=== PATIENT | female | born 1975 | race Two or more races ===

== ENCOUNTER 2022-06-30 08:15 | Emergency (ER) | payer OTHER, SELFPAY ==
--- NOTE | ~2022-06-30 | XR_ITS ---
EXAMINATION: XR CHEST CLINICAL INFORMATION: Cough and chest pain COMPARISON: Chest radiograph from 11/27/2015 TECHNIQUE: 2 views of the chest were obtained. FINDINGS: No focal consolidation. No pneumothorax. Trachea is midline. Cardiac mediastinal silhouette is not enlarged. No large pleural effusion. Osseous structures are intact. Soft tissues are unremarkable. XR/XR chest 2V IMPRESSION: No acute cardiopulmonary process.
--- NOTE | 2022-06-30 08:17 | ECG_ITS ---
Test Reason : cp Blood Pressure : / mmHG Vent. Rate : 090 BPM Atrial Rate : 090 BPM P-R Int : 148 ms QRS Dur : 072 ms QT Int : 364 ms P-R-T Axes : 033 021 025 degrees QTc Int : 445 ms Normal sinus rhythm Cannot rule out Anterior infarct , age undetermined - could be related to body habitus and lead placement Borderline ECG When compared with ECG of 27-NOV-2015 21:42, Vent. rate has increased BY 39 BPM Referred By: Generic ED Physician Electronically Signed By:SILVESTRE OLIVAREZ
[2022-06-30 08:27] VITALS: BP 131/87; PULSE 88; RESP 18; TEMP 36.2; O2SAT 96; BMI 45.3
--- OUTSIDE RECORDS SUMMARY | 2022-06-30 08:44 | XMS_ITS | Continuity of Care Document ---
Author Name Unknown Organization [facility] Address Unknown Care Team Providers Care Stretcher And Drier Name Role Phone Michelle Artis NP [place] Primary Care Physici an Encounter [facility] [place] ACCT R [id number] Date(s): 05/12/21 - 05/19/21 [facility] Attending Physician: Silvana Thomas RD Referring Physician: Not on Staff, Referring MD Allergies, Adverse Reactions, Alerts No Known Allergies Immunizations Given and Recorded Vaccine Date Status Refusal Reason influenza virus vaccine, inactivated 01/17/19 Give n influenza virus vaccine, inactivated 1 01/25/10 Gi chacorta pneumococcal 23-valent vaccine 11/19/18 Given tetanus-diphtheria toxoids (Td) 2 04/20/10 Given Influenza Vaccine (oldterm) 3 12/31/08 Given 1Admin Note: VIS 11/10/2009 2Admin Note: vis 09/10/93 3Admin Note: VIS 11/11/08 Medications Carafate 1 gm oral tablet 1 Gm, 1, tablet, By Mouth, 3 times a day before meals and bedtime, PRN, # 120 tablet, Refills 2, Tot. Refills 2, Maintenance, Dyspepsia, 11/06/19 16:56:00 EDT, Route to Pharmacy Electronically, [facility] #[id number], 167.6, cm, 03/20/19 8:28:00... Start Date: 11/06/19 Status: Ordered cetirizine 10 mg oral tablet 1 tablet = 10 mg, By Mouth, Daily, # 30 tablet, 1 Refills, Maintenance, 05/23/18 14:31:47 EST, Tablet, Slovak instructions Start Date: 05/23/18 Status: Ordered famotidine 10 mg oral tablet 1 tablet = 10 mg, By Mouth, 2 times a day, # 28 tablet, 0 Refills, Maintenance, 11/01/19 17:06:00 EDT, Tablet, [facility] #[id number], 167.6, cm, 03/20/19 8:28:00 EST, Height Start Date: 11/01/19 Stop Date: 11/15/19 Status: Ordered hydrocortisone 2.5% topical cream 1 application, Topically, 2 times a day, Apply thin film to affected area on face until symptoms resolve. Do use for more than 2 weeks., # 30 Gm, 0 Refills, Maintenance, 05/23/18 14:33:45 EST, Cream,Slovak instructions, 1 application Topically 2 carina... Start Date: 05/23/18 Status: Ordered naproxen 500 mg oral tablet 1 tablet = 500 mg, By Mouth, 2 times a day, PRN Pain , Moderate, take regularly for 1-2 weeks then as needed, do not take with ibuprofen in greenlandic, # 30 tablet, 0 Refills, Maintenance, 02/13/19 14:04:28 EST, Tablet Start Date: 02/13/19 Status: Ordered ondansetron 4 mg oral tablet 1 tablet = 4 mg, By Mouth, Every 8 hours, PRN as needed for nausea/vomiting, # 12 tablet, 0 Refills, Maintenance, 11/01/19 14:06:00 EDT, Tablet, [facility]/pharmacy #[id number], 167.6, cm, 03/20/19 8:28:00 EST, Height Start Date: 11/01/19 Status: Ordered Problem List Condition Effective Dates Status Health Status Inform ant Arachnoid cyst(Confirmed) Active Morbid obesity with BMI of 4 5.0-49.9, adult(Confirmed) Active Chronic headache disorder(Confirmed) Active COVID-19 virus infection(Confirmed) 1 Active Depression(Confirmed) Active Eczema hand(Confirmed) Active ENDOMETRIOSIS(Confirmed) Active Goal-to stop having headaches(Confirmed) Active Heartburn(Confirmed) Active History of diverticulitis(Confirmed) Active Hyperlipidemia(Confirmed) Active HTN (hypertension)(Confirmed) Active Intermittent asthma(Confirmed) Active Calcification of right breas t on mammography(Confirmed) 2, 3 Active Metrorrhagia(Confirmed) 07/18/07 Active HUONG - Obstructive sleep apnea(Confirmed) Active Severe obesity(Confirmed) Active Snoring(Confirmed) Active Vitamin D Deficiency(Confirmed) Active 1Reported by pt, June 2020, no hospitalization. 2follow-up Left breast US in 6 mos August 2020 3repeat mammo in 6 mos- 07/2019 Vital Signs Most recent to oldest [Reference Range]: 1 Height 165 cm (05/12/21 10:14 AM) Weight 130.8 kg (05/12/21 10:14 AM) Body Mass Index [18.5-24.99] 48.04 *>HHI* (05/12/21 10:14 AM) Social History Social History Type Response Smoking Status Never smoker entered on: 12/31/15 Sex
--- OUTSIDE RECORDS SUMMARY | 2022-06-30 08:44 | XMS_ITS | Continuity of Care Document ---
Author Name Unknown Organization [facility] Address [address] [place] [address]- Care Team Providers Care Chief Of Production Name Role Phone Chandra ROSE, Michelle Cruz Primary Care Physici an [place] [facility] [place] - 12/04/[address] [address]- [facility] Allergies, Adverse Reactions, Alerts Substance Reaction Severity Status NKA Active Immunizations Given and Recorded Vaccine Date Status [...] 11/06/19 16:56:00 EDT, Route to Pharmacy Electronically, [facility] #[id number], 827.6, cm, 03/20/19 8:28:00... Start Date: 11/06/19 Status: Ordered cetirizine 10 mg oral tablet 1 tablet = 10 mg, By Mouth, Daily, # 30 tablet, 1 Refills, Maintenance, 05/23/18 14:31:47 EST, Tablet, Estonian instructions Start Date: 05/23/18 Status: Ordered famotidine 10 mg oral tablet 1 tablet = 10 mg, By Mouth, 2 times a day, # 28 tablet, 0 Refills, Maintenance, 11/01/19 17:06:00 EDT, Tablet, [facility] #[id number], 167.6, cm, 03/20/19 8:28:00 EST, Height Start Date: 11/01/19 Stop Date: 11/15/19 Status: Ordered hydrocortisone 2.5% topical cream 1 application, Topically, 2 times a day, Apply thin film to affected area on face until symptoms resolve. Do use for more than 2 weeks., # 30 Gm, 0 Refills, Maintenance, 05/23/18 14:33:45 EST, Cream,Estonian instructions, 1 application Topically 2 carina... Start Date: 05/23/18 Status: Ordered naproxen 500 mg oral tablet 1 tablet = 500 mg, By Mouth, 2 times a day, PRN Pain , Moderate, take regularly for 1-2 weeks then as needed, do not take with ibuprofen in czech, # 30 tablet, 0 Refills, Maintenance, 02/13/19 14:04:28 EST, Tablet Start Date: 02/13/19 Status: Ordered ondansetron 4 mg oral tablet 1 tablet = 4 mg, By Mouth, Every 8 hours, PRN as needed for nausea/vomiting, # 12 tablet, 0 Refills, Maintenance, 11/01/19 14:06:00 EDT, Tablet, [facility]/pharmacy #[id number], 167.6, cm, 03/20/19 8:28:00 EST, Height Start Date: 11/01/19 Status: Ordered Problem List Condition Effective Dates Status Health Status Inform ant Arachnoid cyst(Confirmed) Active Chronic headache disorder(Confirmed) Active Depression(Confirmed) Active Eczema hand(Confirmed) Active ENDOMETRIOSIS(Confirmed) Active Goal-to stop having headaches(Confirmed) Active Hyperlipidemia(Confirmed) Active Intermittent asthma(Confirmed) Active Calcification of right breas t on mammography(Confirmed) 1 Active Metrorrhagia(Confirmed) 07/18/07 Active Morbid obesity(Confirmed) Active HUONG - Obstructive sleep apnea(Confirmed) Active Vitamin D Deficiency(Confirmed) Active 1repeat mammo in 6 mos- 07/2019 Social History Social History Type Response Smoking Status Never smoker entered on: 12/31/15 Sex
--- OUTSIDE RECORDS SUMMARY | 2022-06-30 08:44 | XMS_ITS | Continuity of Care Document ---
Author Name Unknown Organization [facility] Address [address] [place] [address]- Care Team Providers Care Loan Funder Name Role Phone Chandra ROSE, Michelle Cruz Primary Care Physici an [place] [facility] [place] 12/05/[address] [address]- [facility] Allergies, Adverse Reactions, Alerts Substance Reaction Severity [...] 11/06/19 16:56:00 EDT, Route to Pharmacy Electronically, [facility] #[id number], 784.6, cm, 03/20/19 8:28:00... Start Date: 11/06/19 Status: Ordered cetirizine 10 mg oral tablet 1 tablet = 10 mg, By Mouth, Daily, # 30 tablet, 1 Refills, Maintenance, 05/23/18 14:31:47 EST, Tablet, Guyanese instructions Start Date: 05/23/18 Status: Ordered famotidine 10 mg oral tablet 1 tablet = 10 mg, By Mouth, 2 times a day, # 28 tablet, 0 Refills, Maintenance, 11/01/19 17:06:00 EDT, Tablet, [facility] #[id number], 167.6, cm, 03/20/19 8:28:00 EST, Height Start Date: 11/01/19 Stop Date: 11/15/19 Status: Ordered hydrocortisone 2.5% topical cream 1 application, Topically, 2 times a day, Apply thin film to affected area on face until symptoms resolve. Do use for more than 2 weeks., # 30 Gm, 0 Refills, Maintenance, 05/23/18 14:33:45 EST, Cream,Guyanese instructions, 1 application Topically 2 carina... Start Date: 05/23/18 Status: Ordered naproxen 500 mg oral tablet 1 tablet = 500 mg, By Mouth, 2 times a day, PRN Pain , Moderate, take regularly for 1-2 weeks then as needed, do not take with ibuprofen in gabonese, # 30 tablet, 0 Refills, Maintenance, 02/13/19 14:04:28 EST, Tablet Start Date: 02/13/19 Status: Ordered ondansetron 4 mg oral tablet 1 tablet = 4 mg, By Mouth, Every 8 hours, PRN as needed for nausea/vomiting, # 12 tablet, 0 Refills, Maintenance, 11/01/19 14:06:00 EDT, Tablet, [facility]/pharmacy #[id number], 167.6, cm, 03/20/19 8:28:00 EST, Height [...]
--- OUTSIDE RECORDS SUMMARY | 2022-06-30 08:44 | XMS_ITS | Continuity of Care Document ---
Author Name Unknown Organization [facility] Address [address] [place] [address]- Care Team Providers Care Roustabout Pusher Name Role Phone Michelle Artis NP Primary Care Physici an Encounter [facility] Date(s): 11/09/20 - 12/09/[address] [address]- Allergies, Adverse Reactions, Alerts Substance Reaction Severity [...] 11/06/19 16:56:00 EDT, Route to Pharmacy Electronically, [facility] #[id number], 706.6, cm, 03/20/19 8:28:00... Start Date: 11/06/19 Status: Ordered cetirizine 10 mg oral tablet 1 tablet = 10 mg, By Mouth, Daily, # 30 tablet, 1 Refills, Maintenance, 05/23/18 14:31:47 EST, Tablet, Malian instructions Start Date: 05/23/18 Status: Ordered famotidine 10 mg oral tablet 1 tablet = 10 mg, By Mouth, 2 times a day, # 28 tablet, 0 Refills, Maintenance, 11/01/19 17:06:00 EDT, Tablet, [facility] #[id number], 167.6, cm, 03/20/19 8:28:00 EST, Height Start Date: 11/01/19 Stop Date: 11/15/19 Status: Ordered hydrocortisone 2.5% topical cream 1 application, Topically, 2 times a day, Apply thin film to affected area on face until symptoms resolve. Do use for more than 2 weeks., # 30 Gm, 0 Refills, Maintenance, 05/23/18 14:33:45 EST, Cream,Malian instructions, 1 application Topically 2 carina... Start Date: 05/23/18 Status: Ordered naproxen 500 mg oral tablet 1 tablet = 500 mg, By Mouth, 2 times a day, PRN Pain , Moderate, take regularly for 1-2 weeks then as needed, do not take with ibuprofen in palestinian, # 30 tablet, 0 Refills, Maintenance, 02/13/19 14:04:28 EST, Tablet Start Date: 02/13/19 Status: Ordered ondansetron 4 mg oral tablet 1 tablet = 4 mg, By Mouth, Every 8 hours, PRN as needed for nausea/vomiting, # 12 tablet, 0 Refills, Maintenance, 11/01/19 14:06:00 EDT, Tablet, [facility]/pharmacy #[id number], 167.6, cm, 03/20/19 8:28:00 EST, [...] sleep apnea(Confirmed) Active Vitamin D Deficiency(Confirmed) Active 1Reported by pt, June 2020, no hospitalization. 2follow-up Left breast US in 6 mos August 2020 3repeat mammo in 6 mos- 07/2019 Social History Social History Type Response Smoking Status Never smoker entered on: 12/31/15 Sex
--- OUTSIDE RECORDS SUMMARY | 2022-06-30 08:44 | XMS_ITS | Continuity of Care Document ---
Author Name Unknown Organization [facility] Address Unknown Care Team Providers Care Sap Ppm Consultant Name Role Phone Chandra ROSE, Michelle Barney [place] Primary Care Physici an [place] [facility] [place] 02/24/21 [facility] Attending Physician: Silvana Thomas RD Allergies, Adverse Reactions, Alerts Substance Reaction Severity [...] 11/06/19 16:56:00 EDT, Route to Pharmacy Electronically, [facility] #[id number], 737.6, cm, 03/20/19 8:28:00... Start Date: 11/06/19 Status: Ordered cetirizine 10 mg oral tablet 1 tablet = 10 mg, By Mouth, Daily, # 30 tablet, 1 Refills, Maintenance, 05/23/18 14:31:47 EST, Tablet, Andorran instructions Start Date: 05/23/18 Status: Ordered famotidine 10 mg oral tablet 1 tablet = 10 mg, By Mouth, 2 times a day, # 28 tablet, 0 Refills, Maintenance, 11/01/19 17:06:00 EDT, Tablet, [facility] #[id number], 167.6, cm, 03/20/19 8:28:00 EST, Height Start Date: 11/01/19 Stop Date: 11/15/19 Status: Ordered hydrocortisone 2.5% topical cream 1 application, Topically, 2 times a day, Apply thin film to affected area on face until symptoms resolve. Do use for more than 2 weeks., # 30 Gm, 0 Refills, Maintenance, 05/23/18 14:33:45 EST, Cream,Andorran instructions, 1 application Topically 2 carina... Start Date: 05/23/18 Status: Ordered naproxen 500 mg oral tablet 1 tablet = 500 mg, By Mouth, 2 times a day, PRN Pain , Moderate, take regularly for 1-2 weeks then as needed, do not take with ibuprofen in beninese, # 30 tablet, 0 Refills, Maintenance, 02/13/19 14:04:28 EST, Tablet Start Date: 02/13/19 Status: Ordered ondansetron 4 mg oral tablet 1 tablet = 4 mg, By Mouth, Every 8 hours, PRN as needed for nausea/vomiting, # 12 tablet, 0 Refills, Maintenance, 11/01/19 14:06:00 EDT, Tablet, [facility]acy #[id number], 167.6, cm, 03/20/19 8:28:00 EST, Height [...] Obstructive sleep apnea(Confirmed) Active Severe obesity(Confirmed) Active Vitamin D Deficiency(Confirmed) Active 1Reported by pt, June 2020, no hospitalization. 2follow-up Left breast US in 6 mos August 2020 3repeat mammo in 6 mos- 07/2019 Vital Signs Most recent to oldest [Reference Range]: 1 Height 165 cm (02/17/21 3:10 PM) Weight 131.4 kg (02/17/21 3:10 PM) Body Mass Index [18.5-24.99] 48.26 *>HHI* (02/17/21 3:10 PM) Social History Social History Type Response Smoking Status Never smoker entered on: 12/31/15 Sex
--- OUTSIDE RECORDS SUMMARY | 2022-06-30 08:44 | XMS_ITS | Continuity of Care Document ---
Author Name Unknown Organization [facility] Address [address] [place] [address] [address] [place] [address]- Care Team Providers Care Field Spec Name Role Phone Chandra ROSE, Michelle Cruz Primary Care Physici an Encounter [facility] Date(s): 11/02/20 - 11/09/[address] [place] [address]- Encounter Diagnosis Morbid obesity with BMI of 45.0-49.9, adult(Discharge Diagnosis) - 11/02/20 Attending Physician: Tanner Croft Referring Physician: Michelle Artis NP Allergies, Adverse Reactions, Alerts Substance Reaction Severity [...] 11/06/19 16:56:00 EDT, Route to Pharmacy Electronically, [facility] #[id number], 167.6, cm, 03/20/19 8:28:00... Start Date: 11/06/19 Status: Ordered cetirizine 10 mg oral tablet 1 tablet = 10 mg, By Mouth, Daily, # 30 tablet, 1 Refills, Maintenance, 05/23/18 14:31:47 EST, Tablet, Samoan instructions Start Date: 05/23/18 Status: Ordered famotidine 10 mg oral tablet 1 tablet = 10 mg, By Mouth, 2 times a day, # 28 tablet, 0 Refills, Maintenance, 11/01/19 17:06:00 EDT, Tablet, [facility] #[id number], 167.6, cm, 03/20/19 8:28:00 EST, Height Start Date: 11/01/19 Stop Date: 11/15/19 Status: Ordered hydrocortisone 2.5% topical cream 1 application, Topically, 2 times a day, Apply thin film to affected area on face until symptoms resolve. Do use for more than 2 weeks., # 30 Gm, 0 Refills, Maintenance, 05/23/18 14:33:45 EST, Cream,Samoan instructions, 1 application Topically 2 carina... Start Date: 05/23/18 Status: Ordered naproxen 500 mg oral tablet 1 tablet = 500 mg, By Mouth, 2 times a day, PRN Pain , Moderate, take regularly for 1-2 weeks then as needed, do not take with ibuprofen in polish, # 30 tablet, 0 Refills, Maintenance, 02/13/19 14:04:28 EST, Tablet Start Date: 02/13/19 Status: Ordered ondansetron 4 mg oral tablet 1 tablet = 4 mg, By Mouth, Every 8 hours, PRN as needed for nausea/vomiting, # 12 tablet, 0 Refills, Maintenance, 11/01/19 14:06:00 EDT, Tablet, [facility]/pharmacy #[id number], 167.6, cm, 03/20/19 8:28:00 EST, [...] 2020 3repeat mammo in 6 mos- 07/2019 Diagnosis Diagnosis Type Effective Dates Health Status Cl inical Service Informant Morbid obesity with BMI of 45.0-49.9, adult Discharge Diagnosis 11/02/20 Procedures Procedure Date Related Diagnosis Body Site Status section 2002 Complete d Vital Signs Most recent to oldest [Reference Range]: 1 Height 167.6 cm (11/02/20 3:55 PM) Weight 132.8 kg (11/02/20 3:55 PM) Pulse Rate [55-90 bpm] 75 bpm (11/02/20 3:55 PM) Body Mass Index [18.5-24.99] 47.28 *>HHI* (11/02/20 3:55 PM) Blood Pressure [90-138/55-84 mm Hg] 128/ 84mm Hg (11/02/20 3:55 PM) Temperature [96.8-100.4 DegF] 97.4 DegF (11/02/20 3:55 PM) Blood pressure sites Arm, left (11/02/20 3:55 PM) Temperature Route Temporal (11/02/20 3:55 PM) Weight Obtained Via Standing scale (11/02/20 3:55 PM) Social History Social History Type Response Smoking Status Never smoker entered on: 12/31/15 Sex
--- OUTSIDE RECORDS SUMMARY | 2022-06-30 08:44 | XMS_ITS | Continuity of Care Document ---
Author Name Unknown Organization [facility] Address Unknown Care Team Providers Care Head Of Quality Name Role Phone Chandra ROSE, Michelle Barney Tagcelena Primary Care Physici an Encounter [facility] [place] Date(s): 06/25/21 - 07/25/21 [facility] Attending Physician: AdmtrChirag Admitting Physician: Admtr, Chirag Referring Physician: Admtr, Ar8 Allergies, Adverse Reactions, Alerts No Known Allergies [...] 11/06/19 16:56:00 EDT, Route to Pharmacy Electronically, [facility] #[id number], 520.6, cm, 03/20/19 8:28:00... Start Date: 11/06/19 Status: Ordered cetirizine 10 mg oral tablet 1 tablet = 10 mg, By Mouth, Daily, # 30 tablet, 1 Refills, Maintenance, 05/23/18 14:31:47 EST, Tablet, Arabic instructions Start Date: 05/23/18 Status: Ordered famotidine 10 mg oral tablet 1 tablet = 10 mg, By Mouth, 2 times a day, # 28 tablet, 0 Refills, Maintenance, 11/01/19 17:06:00 EDT, Tablet, [facility] #[id number], 167.6, cm, 03/20/19 8:28:00 EST, Height Start Date: 11/01/19 Stop Date: 11/15/19 Status: Ordered hydrocortisone 2.5% topical cream 1 application, Topically, 2 times a day, Apply thin film to affected area on face until symptoms resolve. Do use for more than 2 weeks., # 30 Gm, 0 Refills, Maintenance, 05/23/18 14:33:45 EST, Cream,Arabic instructions, 1 application Topically 2 carina... Start Date: 05/23/18 Status: Ordered naproxen 500 mg oral tablet 1 tablet = 500 mg, By Mouth, 2 times a day, PRN Pain , Moderate, take regularly for 1-2 weeks then as needed, do not take with ibuprofen in yoruba, # 30 tablet, 0 Refills, Maintenance, 02/13/19 14:04:28 EST, Tablet Start Date: 02/13/19 Status: Ordered ondansetron 4 mg oral tablet 1 tablet = 4 mg, By Mouth, Every 8 hours, PRN as needed for nausea/vomiting, # 12 tablet, 0 Refills, Maintenance, 11/01/19 14:06:00 EDT, Tablet, [facility]acy #[id number], 167.6, cm, 03/20/19 8:28:00 [...]
--- OUTSIDE RECORDS SUMMARY | 2022-06-30 08:44 | XMS_ITS | Continuity of Care Document ---
Author Name Unknown Organization [facility] Address [address] [place] [address]- Care Team Providers Care Social Group Worker Name Role Phone Chandra ROSE, Michelle Cruz Primary Care Physici an Encounter [facility] Date(s): 02/18/20 - 03/19/[address] [address]- Allergies, Adverse Reactions, Alerts Substance Reaction Severity [...] 11/06/19 16:56:00 EDT, Route to Pharmacy Electronically, [facility] #[id number], 507.6, cm, 03/20/19 8:28:00... Start Date: 11/06/19 Status: Ordered cetirizine 10 mg oral tablet 1 tablet = 10 mg, By Mouth, Daily, # 30 tablet, 1 Refills, Maintenance, 05/23/18 14:31:47 EST, Tablet, Malaysian instructions Start Date: 05/23/18 Status: Ordered famotidine 10 mg oral tablet 1 tablet = 10 mg, By Mouth, 2 times a day, # 28 tablet, 0 Refills, Maintenance, 11/01/19 17:06:00 EDT, Tablet, [facility] #[id number], 167.6, cm, 03/20/19 8:28:00 EST, Height Start Date: 11/01/19 Stop Date: 11/15/19 Status: Ordered hydrocortisone 2.5% topical cream 1 application, Topically, 2 times a day, Apply thin film to affected area on face until symptoms resolve. Do use for more than 2 weeks., # 30 Gm, 0 Refills, Maintenance, 05/23/18 14:33:45 EST, Cream,Malaysian instructions, 1 application Topically 2 carina... Start Date: 05/23/18 Status: Ordered naproxen 500 mg oral tablet 1 tablet = 500 mg, By Mouth, 2 times a day, PRN Pain , Moderate, take regularly for 1-2 weeks then as needed, do not take with ibuprofen in north korean, # 30 tablet, 0 Refills, Maintenance, 02/13/19 14:04:28 EST, Tablet Start Date: 02/13/19 Status: Ordered ondansetron 4 mg oral tablet 1 tablet = 4 mg, By Mouth, Every 8 hours, PRN as needed for nausea/vomiting, # 12 tablet, 0 Refills, Maintenance, 11/01/19 14:06:00 EDT, Tablet, [facility]acy #[id number], 167.6, cm, 03/20/19 8:28:00 EST, Height Start Date: 11/01/19 Status: Ordered Problem List Condition Effective Dates Status Health Status Inform ant Arachnoid cyst(Confirmed) Active Chronic headache disorder(Confirmed) Active Depression(Confirmed) Active Eczema hand(Confirmed) Active ENDOMETRIOSIS(Confirmed) Active Goal-to stop having headaches(Confirmed) Active Hyperlipidemia(Confirmed) Active Intermittent asthma(Confirmed) Active Calcification of right breas t on mammography(Confirmed) 1, 2 Active Metrorrhagia(Confirmed) 07/18/07 Active Morbid obesity(Confirmed) Active HUONG - Obstructive sleep apnea(Confirmed) Active Vitamin D Deficiency(Confirmed) Active 1follow-up Left breast US in 6 mos August 2020 2repeat mammo in 6 mos- 07/2019 Social History Social History Type Response Smoking Status Never smoker entered on: 12/31/15 Sex
--- OUTSIDE RECORDS SUMMARY | 2022-06-30 08:44 | XMS_ITS | Continuity of Care Document ---
Author Name Unknown Organization [facility] Address [address] [place] [address]- Care Team Providers Care Rubbing Bed Operator Name Role Phone Michelle Artis NP Primary Care Physici an En[place] [facility] [place] Date(s): 07/01/19 - 07/11/19 [facility] [address] [place] [address]- Attending Physician: Chirag Moseley Admitting Physician: AdmChirag saldana Referring Physician: AdmtrChirag Allergies, Adverse Reactions, Alerts Substance Reaction Severity [...] vis 09/10/93 3Admin Note: VIS 11/11/08 Medications cetirizine 10 mg oral tablet 1 tablet = 10 mg, By Mouth, Daily, # 30 tablet, 1 Refills, Maintenance, 05/23/18 14:31:47 EST, Tablet, Amharic instructions Start Date: 05/23/18 Status: Ordered hydrocortisone 2.5% topical cream 1 application, Topically, 2 times a day, Apply thin film to affected area on face until symptoms resolve. Do use for more than 2 weeks., # 30 Gm, 0 Refills, Maintenance, 05/23/18 14:33:45 EST, Cream,Amharic instructions, 1 application Topically 2 carina... Start Date: 05/23/18 Status: Ordered naproxen 500 mg oral tablet 1 tablet = 500 mg, By Mouth, 2 times a day, PRN Pain , Moderate, take regularly for 1-2 weeks then as needed, do not take with ibuprofen in tamazight, # 30 tablet, 0 Refills, Maintenance, 02/13/19 14:04:28 EST, Tablet Start Date: 02/13/19 Status: Ordered Problem List Condition Effective Dates [...]
--- OUTSIDE RECORDS SUMMARY | 2022-06-30 08:44 | XMS_ITS | Continuity of Care Document ---
Author Name Unknown Organization [facility] Address Unknown Care Team Providers Care Awnings Mechanic Name Role Phone Chandra ROSE, Michelle Barney Tagcelena Primary Care Physici an [facility]counter [facility] Date(s): 03/30/21 - 04/29/21 [facility] Attending Physician: Chirag Moseley Admitting Physician: Chirag Moseley Referring Physician: AdmtrChirag Allergies, Adverse Reactions, Alerts No Known Allergies [...] 11/06/19 16:56:00 EDT, Route to Pharmacy Electronically, [facility] #[id number], 511.6, cm, 03/20/19 8:28:00... Start Date: 11/06/19 Status: Ordered cetirizine 10 mg oral tablet 1 tablet = 10 mg, By Mouth, Daily, # 30 tablet, 1 Refills, Maintenance, 05/23/18 14:31:47 EST, Tablet, Faroese instructions Start Date: 05/23/18 Status: Ordered famotidine 10 mg oral tablet 1 tablet = 10 mg, By Mouth, 2 times a day, # 28 tablet, 0 Refills, Maintenance, 11/01/19 17:06:00 EDT, Tablet, [facility] #[id number], 167.6, cm, 03/20/19 8:28:00 EST, Height Start Date: 11/01/19 Stop Date: 11/15/19 Status: Ordered hydrocortisone 2.5% topical cream 1 application, Topically, 2 times a day, Apply thin film to affected area on face until symptoms resolve. Do use for more than 2 weeks., # 30 Gm, 0 Refills, Maintenance, 05/23/18 14:33:45 EST, Cream,Faroese instructions, 1 application Topically 2 carina... Start Date: 05/23/18 Status: Ordered naproxen 500 mg oral tablet 1 tablet = 500 mg, By Mouth, 2 times a day, PRN Pain , Moderate, take regularly for 1-2 weeks then as needed, do not take with ibuprofen in bangladeshi, # 30 tablet, 0 Refills, Maintenance, 02/13/19 14:04:28 EST, Tablet Start Date: 02/13/19 Status: Ordered ondansetron 4 mg oral tablet 1 tablet = 4 mg, By Mouth, Every 8 hours, PRN as needed for nausea/vomiting, # 12 tablet, 0 Refills, Maintenance, 11/01/19 14:06:00 EDT, Tablet, [facility]/pharmacy #[id number], 167.6, cm, 03/20/19 8:28:00 [...]
--- OUTSIDE RECORDS SUMMARY | 2022-06-30 08:44 | XMS_ITS | Continuity of Care Document ---
Author Name Unknown Organization [facility] Address [address] [place] [address]- Care Team Providers Care Social Insurance Specialist Name Role Phone Michelle Artis NP Primary Care Physici an Encounter [facility] [place] Date(s): 07/14/21 - 08/13/[address] [address]- Allergies, Adverse Reactions, Alerts No Known Allergies [...] 11/06/19 16:56:00 EDT, Route to Pharmacy Electronically, [facility] #[id number], 671.6, cm, 03/20/19 8:28:00... Start Date: 11/06/19 Status: Ordered cetirizine 10 mg oral tablet 1 tablet = 10 mg, By Mouth, Daily, # 30 tablet, 1 Refills, Maintenance, 05/23/18 14:31:47 EST, Tablet, Hong Konger instructions Start Date: 05/23/18 Status: Ordered famotidine 10 mg oral tablet 1 tablet = 10 mg, By Mouth, 2 times a day, # 28 tablet, 0 Refills, Maintenance, 11/01/19 17:06:00 EDT, Tablet, [facility] #[id number], 167.6, cm, 03/20/19 8:28:00 EST, Height Start Date: 11/01/19 Stop Date: 11/15/19 Status: Ordered hydrocortisone 2.5% topical cream 1 application, Topically, 2 times a day, Apply thin film to affected area on face until symptoms resolve. Do use for more than 2 weeks., # 30 Gm, 0 Refills, Maintenance, 05/23/18 14:33:45 EST, Cream,Hong Konger instructions, 1 application Topically 2 carina... Start Date: 05/23/18 Status: Ordered naproxen 500 mg oral tablet 1 tablet = 500 mg, By Mouth, 2 times a day, PRN Pain , Moderate, take regularly for 1-2 weeks then as needed, do not take with ibuprofen in citizen of [place], # 30 tablet, 0 Refills, Maintenance, 02/13/19 14:04:28 EST, Tablet Start Date: 02/13/19 Status: Ordered ondansetron 4 mg oral tablet 1 tablet = 4 mg, By Mouth, Every 8 hours, PRN as needed for nausea/vomiting, # 12 tablet, 0 Refills, Maintenance, 11/01/19 14:06:00 EDT, Tablet, [facility]/pharmacy #[id number], 167.6, cm, 03/20/19 8:28:00 EST, [...]
--- OUTSIDE RECORDS SUMMARY | 2022-06-30 08:44 | XMS_ITS | Continuity of Care Document ---
Author Name Unknown Organization [facility] Address [address] [place] [address]- Care Team Providers Care Lay Out Maker Name Role Phone Michelle Artis NP Primary Care Physici an [facility]counter [facility] Date(s): 12/14/20 - 01/13/[address] [address]- Allergies, Adverse Reactions, Alerts Substance Reaction Severity [...] 11/06/19 16:56:00 EDT, Route to Pharmacy Electronically, [facility] #[id number], 897.6, cm, 03/20/19 8:28:00... Start Date: 11/06/19 Status: Ordered cetirizine 10 mg oral tablet 1 tablet = 10 mg, By Mouth, Daily, # 30 tablet, 1 Refills, Maintenance, 05/23/18 14:31:47 EST, Tablet, Cambodian instructions Start Date: 05/23/18 Status: Ordered famotidine 10 mg oral tablet 1 tablet = 10 mg, By Mouth, 2 times a day, # 28 tablet, 0 Refills, Maintenance, 11/01/19 17:06:00 EDT, Tablet, [facility] #[id number], 167.6, cm, 03/20/19 8:28:00 EST, Height Start Date: 11/01/19 Stop Date: 11/15/19 Status: Ordered hydrocortisone 2.5% topical cream 1 application, Topically, 2 times a day, Apply thin film to affected area on face until symptoms resolve. Do use for more than 2 weeks., # 30 Gm, 0 Refills, Maintenance, 05/23/18 14:33:45 EST, Cream,Cambodian instructions, 1 application Topically 2 carina... Start Date: 05/23/18 Status: Ordered naproxen 500 mg oral tablet 1 tablet = 500 mg, By Mouth, 2 times a day, PRN Pain , Moderate, take regularly for 1-2 weeks then as needed, do not take with ibuprofen in georgian, # 30 tablet, 0 Refills, Maintenance, 02/13/19 14:04:28 EST, Tablet Start Date: 02/13/19 Status: Ordered ondansetron 4 mg oral tablet 1 tablet = 4 mg, By Mouth, Every 8 hours, PRN as needed for nausea/vomiting, # 12 tablet, 0 Refills, Maintenance, 11/01/19 14:06:00 EDT, Tablet, [facility]/pharmacy #[id number], 167.6, cm, 03/20/19 8:28:00 EST, [...]
--- OUTSIDE RECORDS SUMMARY | 2022-06-30 08:44 | XMS_ITS | Continuity of Care Document ---
Author Name Unknown Organization [facility] Address [address] [place] [address]- Care Team Providers Care Hospice Music Therapist Name Role Phone Michelle Artis NP Primary Care Physici an [place] [facility] [place] [facility] [place] - 05/23/[address] [facility] [address] [address]- Attending Physician: Chirag Moseley Admitting Physician: Chirag [...] 11/06/19 16:56:00 EDT, Route to Pharmacy Electronically, [facility] #[id number], 167.6, cm, 03/20/19 8:28:00... Start Date: 11/06/19 Status: Ordered cetirizine 10 mg oral tablet 1 tablet = 10 mg, By Mouth, Daily, # 30 tablet, 1 Refills, Maintenance, 05/23/18 14:31:47 EST, Tablet, Tanzanian instructions Start Date: 05/23/18 Status: Ordered famotidine 10 mg oral tablet 1 tablet = 10 mg, By Mouth, 2 times a day, # 28 tablet, 0 Refills, Maintenance, 11/01/19 17:06:00 EDT, Tablet, [facility] #[id number], 167.6, cm, 03/20/19 8:28:00 EST, Height Start Date: 11/01/19 Stop Date: 11/15/19 Status: Ordered hydrocortisone 2.5% topical cream 1 application, Topically, 2 times a day, Apply thin film to affected area on face until symptoms resolve. Do use for more than 2 weeks., # 30 Gm, 0 Refills, Maintenance, 05/23/18 14:33:45 EST, Cream,Tanzanian instructions, 1 application Topically 2 carina... Start Date: 05/23/18 Status: Ordered naproxen 500 mg oral tablet 1 tablet = 500 mg, By Mouth, 2 times a day, PRN Pain , Moderate, take regularly for 1-2 weeks then as needed, do not take with ibuprofen in turkmen, # 30 tablet, 0 Refills, Maintenance, 02/13/19 14:04:28 EST, Tablet Start Date: 02/13/19 Status: Ordered ondansetron 4 mg oral tablet 1 tablet = 4 mg, By Mouth, Every 8 hours, PRN as needed for nausea/vomiting, # 12 tablet, 0 Refills, Maintenance, 11/01/19 14:06:00 EDT, Tablet, [facility]/pharmacy #[id number], 167.6, cm, 03/20/19 8:28:00 EST, [...]
--- OUTSIDE RECORDS SUMMARY | 2022-06-30 08:44 | XMS_ITS | Continuity of Care Document ---
Author Name Unknown Organization [facility] Address [address] [place] [address]- Care Team Providers Care Hull Sorter Name Role Phone Chandra ROSE, Michelle Cruz Primary Care Physici an Encounter [facility] [place] Date(s): 04/02/19 - 07/31/19 [facility] [address] [place] [address]- Attending Physician: Not on Staff, Attending MD Referring Physician: Michelle Artis NP Allergies, Adverse [...] 1 Refills, Maintenance, 05/23/18 14:31:47 EST, Tablet, Persian instructions Start Date: 05/23/18 Status: Ordered hydrocortisone 2.5% topical cream 1 application, Topically, 2 times a day, Apply thin film to affected area on face until symptoms resolve. Do use for more than 2 weeks., # 30 Gm, 0 Refills, Maintenance, 05/23/18 14:33:45 EST, Cream,Persian instructions, 1 application Topically 2 carina... Start Date: 05/23/18 Status: Ordered naproxen 500 mg oral tablet 1 tablet = 500 mg, By Mouth, 2 times a day, PRN Pain , Moderate, take regularly for 1-2 weeks then as needed, do not take with ibuprofen in greek, # 30 tablet, 0 Refills, Maintenance, 02/13/19 [...]
--- OUTSIDE RECORDS SUMMARY | 2022-06-30 08:44 | XMS_ITS | Continuity of Care Document ---
Author Name Unknown Organization [facility] Address [address] [place] [address]- Care Team Providers Care Facing End Trimmer Name Role Phone Michelle Artis NP Primary Care Physici an [facility] Date(s): 09/10/20 - 10/10/[address] [address] Allergies, Adverse Reactions, Alerts Substance Reaction Severity [...] 11/06/19 16:56:00 EDT, Route to Pharmacy Electronically, [facility] #[id number], 569.6, cm, 03/20/19 8:28:00... Start Date: 11/06/19 Status: Ordered cetirizine 10 mg oral tablet 1 tablet = 10 mg, By Mouth, Daily, # 30 tablet, 1 Refills, Maintenance, 05/23/18 14:31:47 EST, Tablet, Chinese instructions Start Date: 05/23/18 Status: Ordered famotidine 10 mg oral tablet 1 tablet = 10 mg, By Mouth, 2 times a day, # 28 tablet, 0 Refills, Maintenance, 11/01/19 17:06:00 EDT, Tablet, [facility] #[id number], 167.6, cm, 03/20/19 8:28:00 EST, Height Start Date: 11/01/19 Stop Date: 11/15/19 Status: Ordered hydrocortisone 2.5% topical cream 1 application, Topically, 2 times a day, Apply thin film to affected area on face until symptoms resolve. Do use for more than 2 weeks., # 30 Gm, 0 Refills, Maintenance, 05/23/18 14:33:45 EST, Cream,Chinese instructions, 1 application Topically 2 carina... Start [...] 0 Refills, Maintenance, 11/01/19 14:06:00 EDT, Tablet, [facility]/pharmacy #[id number], 167.6, cm, 03/20/19 8:28:00 EST, Height Start Date: 11/01/19 Status: Ordered Problem List Condition Effective Dates Status Health Status Inform ant Arachnoid cyst(Confirmed) Active Chronic headache disorder(Confirmed) Active COVID-19 virus infection(Confirmed) 1 Active Depression(Confirmed) Active Eczema hand(Confirmed) Active ENDOMETRIOSIS(Confirmed) Active Goal-to stop having headaches(Confirmed) Active Hyperlipidemia(Confirmed) Active Intermittent asthma(Confirmed) Active Calcification of right breas t on mammography(Confirmed) 2, 3 Active Metrorrhagia(Confirmed) 07/18/07 Active Morbid obesity(Confirmed) Active HUONG - Obstructive sleep apnea(Confirmed) Active Vitamin D Deficiency(Confirmed) Active 1Reported by pt, June 2020, no hospitalization. 2follow-up Left breast US in 6 mos August 2020 3repeat mammo in 6 mos- 07/2019 Social History Social History Type Response Smoking Status Never smoker entered on: 12/31/15 Sex
--- OUTSIDE RECORDS SUMMARY | 2022-06-30 08:44 | XMS_ITS | Continuity of Care Document ---
Author Name Unknown Organization [facility] ter Address [address] [place] [address]- Care Team Providers Care Engineering Documentation Specialist Name Role Phone Chandra ROSE, Michelle Cruz Primary Care Physici an [facility] Date(s): 08/25/20 - 09/26/[address] [address] Attending Physician: Michelle Artis NP Admitting Physician: Michelle Artsi NP Referring Physician: Michelle Artis NP Allergies, Adverse [...] 11/06/19 16:56:00 EDT, Route to Pharmacy Electronically, [facility] #[id number], 167.6, cm, 03/20/19 8:28:00... Start Date: 11/06/19 [...] 0 Refills, Maintenance, 11/01/19 17:06:00 EDT, Tablet, [facility] #[id number], 167.6, cm, 03/20/19 8:28:00 EST, Height Start [...] needed, do not take with ibuprofen in lithuanian, # 30 tablet, 0 Refills, Maintenance, 02/13/19 14:04:28 EST, Tablet Start Date: 02/13/19 Status: Ordered ondansetron 4 mg oral tablet 1 tablet = 4 mg, By Mouth, Every 8 hours, PRN as needed for nausea/vomiting, # 12 tablet, 0 Refills, Maintenance, 11/01/19 14:06:00 EDT, Tablet, [facility]/pharmacy #[id number], 167.6, cm, 03/20/19 8:28:00 EST, [...]
--- OUTSIDE RECORDS SUMMARY | 2022-06-30 08:44 | XMS_ITS | Continuity of Care Document ---
Author Name Unknown Organization [facility] Address [address] [place] [address]- Care Team Providers Care Army Manager Name Role Phone Michelle Artis NP Primary Care Physici an Encounter [facility] [place] Date(s): 09/10/21 - 10/10/[address] [address]- Allergies, Adverse Reactions, Alerts No Known Allergies Immunizations Given and Recorded Vaccine Date Status Refusal Reason influenza virus vaccine, inactivated 09/06/21 Give n influenza virus vaccine, inactivated 01/17/19 Give n [...] 11/06/19 16:56:00 EDT, Route to Pharmacy Electronically, [facility] #[id number], 167.6, cm, 03/20/19 8:28:00... Start Date: 11/06/19 Status: Ordered cetirizine 10 mg oral tablet 1 tablet = 10 mg, By Mouth, Daily, # 30 tablet, 1 Refills, Maintenance, 05/23/18 14:31:47 EST, Tablet, Luxembourgish instructions Start Date: 05/23/18 Status: Ordered famotidine 10 mg oral tablet 1 tablet = 10 mg, By Mouth, 2 times a day, # 28 tablet, 0 Refills, Maintenance, 11/01/19 17:06:00 EDT, Tablet, [facility] #[id number], 167.6, cm, 03/20/19 8:28:00 EST, Height Start Date: 11/01/19 Stop Date: 11/15/19 Status: Ordered hydrocortisone 2.5% topical cream 1 application, Topically, 2 times a day, Apply thin film to affected area on face until symptoms resolve. Do use for more than 2 weeks., # 30 Gm, 0 Refills, Maintenance, 05/23/18 14:33:45 EST, Cream,Luxembourgish instructions, 1 application Topically 2 carina... Start Date: 05/23/18 Status: Ordered naproxen 500 mg oral tablet 1 tablet = 500 mg, By Mouth, 2 times a day, PRN Pain , Moderate, take regularly for 1-2 weeks then as needed, do not take with ibuprofen in liberian, # 30 tablet, 0 Refills, Maintenance, 02/13/19 14:04:28 EST, Tablet Start Date: 02/13/19 Status: Ordered ondansetron 4 mg oral tablet 1 tablet = 4 mg, By Mouth, Every 8 hours, PRN as needed for nausea/vomiting, # 12 tablet, 0 Refills, Maintenance, 11/01/19 14:06:00 EDT, Tablet, [facility]/pharmacy #[id number], 167.6, cm, 03/20/19 8:28:00 [...] t on mammography(Confirmed) 2, 3 Active Metrorrhagia(Confirmed) 4/16/08 Active HUONG - Obstructive sleep apnea(Confirmed) Active Severe obesity(Confirmed) Active Snoring(Confirmed) Active Vitamin D Deficiency(Confirmed) Active 1Reported by pt, June 2020, no hospitalization. 2follow-up Left breast US in 6 mos August 2020 3repeat mammo in 6 mos- 07/2019 Social History Social History Type Response Smoking Status Never smoker entered on: 12/31/15 Sex
--- OUTSIDE RECORDS SUMMARY | 2022-06-30 08:44 | XMS_ITS | Continuity of Care Document ---
Author Name Unknown Organization [facility] Address [address] [place] [address]- Care Team Providers Care Serging Machine Operator Automatic Name Role Phone Michelle Artis NP Primary Care Physici an [facility] Date(s): 11/05/20 - 12/05/[address] [address]- Allergies, Adverse Reactions, Alerts Substance Reaction Severity [...] 11/06/19 16:56:00 EDT, Route to Pharmacy Electronically, [facility] #[id number], 657.6, cm, 03/20/19 8:28:00... Start Date: 11/06/19 Status: Ordered cetirizine 10 mg oral tablet 1 tablet = 10 mg, By Mouth, Daily, # 30 tablet, 1 Refills, Maintenance, 05/23/18 14:31:47 EST, Tablet, Citizen Of [place] instructions Start Date: 05/23/18 Status: Ordered famotidine 10 mg oral tablet 1 tablet = 10 mg, By Mouth, 2 times a day, # 28 tablet, 0 Refills, Maintenance, 11/01/19 17:06:00 EDT, Tablet, [facility] #[id number], 167.6, cm, 03/20/19 8:28:00 EST, Height Start Date: 11/01/19 Stop Date: 11/15/19 Status: Ordered hydrocortisone 2.5% topical cream 1 application, Topically, 2 times a day, Apply thin film to affected area on face until symptoms resolve. Do use for more than 2 weeks., # 30 Gm, 0 Refills, Maintenance, 05/23/18 14:33:45 EST, Cream,[place]izen [place] instructions, 1 application Topically 2 carina... Start Date: 05/23/18 Status: Ordered naproxen 500 mg oral tablet 1 tablet = 500 mg, By Mouth, 2 times a day, PRN Pain , Moderate, take regularly for 1-2 weeks then as needed, do not take with ibuprofen in bahraini, # 30 tablet, 0 Refills, Maintenance, 02/13/19 14:04:28 EST, Tablet Start Date: 02/13/19 Status: Ordered ondansetron 4 mg oral tablet 1 tablet = 4 mg, By Mouth, Every 8 hours, PRN as needed for nausea/vomiting, # 12 tablet, 0 Refills, Maintenance, 11/01/19 14:06:00 EDT, Tablet, [facility]/pharmacy #[id number], 167.6, cm, 03/20/19 [...]
--- OUTSIDE RECORDS SUMMARY | 2022-06-30 08:44 | XMS_ITS | Continuity of Care Document ---
Author Name Unknown Organization [facility] Address [address] [place] [address]- Care Team Providers Care Assistant Golf Professional Name Role Phone Chandra ROSE, Michelle Cruz Primary Care Physici an Encounter [facility] [place] Date(s): 03/12/20 - 04/11/[address] [address]- Allergies, Adverse Reactions, Alerts Substance Reaction Severity [...] 11/06/19 16:56:00 EDT, Route to Pharmacy Electronically, [facility] #[id number], 592.6, cm, 03/20/19 8:28:00... Start Date: 11/06/19 Status: Ordered cetirizine 10 mg oral tablet 1 tablet = 10 mg, By Mouth, Daily, # 30 tablet, 1 Refills, Maintenance, 05/23/18 14:31:47 EST, Tablet, Mosotho instructions Start Date: 05/23/18 Status: Ordered famotidine 10 mg oral tablet 1 tablet = 10 mg, By Mouth, 2 times a day, # 28 tablet, 0 Refills, Maintenance, 11/01/19 17:06:00 EDT, Tablet, [facility] #[id number], 167.6, cm, 03/20/19 8:28:00 EST, Height Start Date: 11/01/19 Stop Date: 11/15/19 Status: Ordered hydrocortisone 2.5% topical cream 1 application, Topically, 2 times a day, Apply thin film to affected area on face until symptoms resolve. Do use for more than 2 weeks., # 30 Gm, 0 Refills, Maintenance, 05/23/18 14:33:45 EST, Cream,Mosotho instructions, 1 application Topically 2 carina... Start Date: 05/23/18 Status: Ordered naproxen 500 mg oral tablet 1 tablet = 500 mg, By Mouth, 2 times a day, PRN Pain , Moderate, take regularly for 1-2 weeks then as needed, do not take with ibuprofen in japanese, # 30 tablet, 0 Refills, Maintenance, 02/13/19 [...]
--- OUTSIDE RECORDS SUMMARY | 2022-06-30 08:44 | XMS_ITS | Continuity of Care Document ---
Author Name Unknown Organization [facility] ter Address [address] [place] [address]- Care Team Providers Care Director Post Name Role Phone Chandra ROSE, Michelle Cruz Primary Care Physici an [facility]counter [facility] Date(s): 09/23/20 - 10/30/[address] [address] Attending Physician: Michelle Artis NP Admitting Physician: Michelle Artis NP Referring Physician: Michelle Artis NP Allergies, [...] 11/06/19 16:56:00 EDT, Route to Pharmacy Electronically, [facility] #[id number], 167.6, cm, 03/20/19 8:28:00... Start Date: 11/06/19 Status: Ordered cetirizine 10 mg oral tablet 1 tablet = 10 mg, By Mouth, Daily, # 30 tablet, 1 Refills, Maintenance, 05/23/18 14:31:47 EST, Tablet, Japanese instructions Start Date: 05/23/18 Status: Ordered famotidine 10 mg oral tablet 1 tablet = 10 mg, By Mouth, 2 times a day, # 28 tablet, 0 Refills, Maintenance, 11/01/19 17:06:00 EDT, Tablet, [facility] #[id number], 167.6, cm, 03/20/19 8:28:00 EST, Height Start Date: 11/01/19 Stop Date: 11/15/19 Status: Ordered hydrocortisone 2.5% topical cream 1 application, Topically, 2 times a day, Apply thin film to affected area on face until symptoms resolve. Do use for more than 2 weeks., # 30 Gm, 0 Refills, Maintenance, 05/23/18 14:33:45 EST, Cream,Japanese instructions, 1 application Topically 2 carina... Start Date: 05/23/18 Status: Ordered naproxen 500 mg oral tablet 1 tablet = 500 mg, By Mouth, 2 times a day, PRN Pain , Moderate, take regularly for 1-2 weeks then as needed, do not take with ibuprofen in arabic, # 30 tablet, 0 Refills, Maintenance, 02/13/19 14:04:28 EST, Tablet Start Date: 02/13/19 Status: Ordered ondansetron 4 mg oral tablet 1 tablet = 4 mg, By Mouth, Every 8 hours, PRN as needed for nausea/vomiting, # 12 tablet, 0 Refills, Maintenance, 11/01/19 14:06:00 EDT, Tablet, [facility]/pharmacy #[id number], 167.6, cm, 03/20/19 8:28:00 EST, [...]
--- OUTSIDE RECORDS SUMMARY | 2022-06-30 08:44 | XMS_ITS | Continuity of Care Document ---
Author Name Unknown Organization [facility] Address [address] [place] [address]- Care Team Providers Care Cream Dumper Name Role Phone Chandra ROSE, Michelle Cruz Primary Care Physici an [facility] [place] Date(s): 08/21/20 - 10/22/[address] [address]- Attending Physician: Tate Mccall MD Admitting Physician: Tate Mccall MD Referring Physician: Saadia Atkins NP Allergies, Adverse Reactions, Alerts Substance Reaction [...] 11/06/19 16:56:00 EDT, Route to Pharmacy Electronically, [facility] #[id number], 167.6, cm, 03/20/19 8:28:00... Start Date: 11/06/19 Status: Ordered cetirizine 10 mg oral tablet 1 tablet = 10 mg, By Mouth, Daily, # 30 tablet, 1 Refills, Maintenance, 05/23/18 14:31:47 EST, Tablet, Ethiopian instructions Start Date: 05/23/18 Status: Ordered famotidine 10 mg oral tablet 1 tablet = 10 mg, By Mouth, 2 times a day, # 28 tablet, 0 Refills, Maintenance, 11/01/19 17:06:00 EDT, Tablet, [facility] #[id number], 167.6, cm, 03/20/19 8:28:00 EST, Height Start Date: 11/01/19 Stop Date: 11/15/19 Status: Ordered hydrocortisone 2.5% topical cream 1 application, Topically, 2 times a day, Apply thin film to affected area on face until symptoms resolve. Do use for more than 2 weeks., # 30 Gm, 0 Refills, Maintenance, 05/23/18 14:33:45 EST, Cream,Ethiopian instructions, 1 application Topically 2 carina... Start [...] 0 Refills, Maintenance, 11/01/19 14:06:00 EDT, Tablet, [facility]/pharmacy #[id number], 167.6, cm, 03/20/19 8:28:00 [...]
--- OUTSIDE RECORDS SUMMARY | 2022-06-30 08:44 | XMS_ITS | Continuity of Care Document ---
Author Name Unknown Organization [facility] Address [address] [place] [address]- Care Team Providers Care Principle Software Engineer Name Role Phone Michelle Artis NP Primary Care Physici an [facility]counter [facility] Date(s): 06/10/21 - 07/16/[address] [address]- Attending Physician: Robyn Yna MD Admitting Physician: Robyn Yan MD Referring Physician: Robyn Yan MD Allergies, Adverse Reactions, Alerts No Known [...] 11/06/19 16:56:00 EDT, Route to Pharmacy Electronically, [facility] #[id number], 167.6, cm, 03/20/19 8:28:00... Start Date: 11/06/19 Status: Ordered cetirizine 10 mg oral tablet 1 tablet = 10 mg, By Mouth, Daily, # 30 tablet, 1 Refills, Maintenance, 05/23/18 14:31:47 EST, Tablet, Chadian instructions Start Date: 05/23/18 Status: Ordered famotidine 10 mg oral tablet 1 tablet = 10 mg, By Mouth, 2 times a day, # 28 tablet, 0 Refills, Maintenance, 11/01/19 17:06:00 EDT, Tablet, [facility] #[id number], 167.6, cm, 03/20/19 8:28:00 EST, Height Start Date: 11/01/19 Stop Date: 11/15/19 Status: Ordered hydrocortisone 2.5% topical cream 1 application, Topically, 2 times a day, Apply thin film to affected area on face until symptoms resolve. Do use for more than 2 weeks., # 30 Gm, 0 Refills, Maintenance, 05/23/18 14:33:45 EST, Cream,Chadian instructions, 1 application Topically 2 carina... Start Date: 05/23/18 Status: Ordered naproxen 500 mg oral tablet 1 tablet = 500 mg, By Mouth, 2 times a day, PRN Pain , Moderate, take regularly for 1-2 weeks then as needed, do not take with ibuprofen in [place], # 30 tablet, 0 Refills, Maintenance, 02/13/19 14:04:28 EST, Tablet Start Date: 02/13/19 Status: Ordered ondansetron 4 mg oral tablet 1 tablet = 4 mg, By Mouth, Every 8 hours, PRN as needed for nausea/vomiting, # 12 tablet, 0 Refills, Maintenance, 11/01/19 14:06:00 EDT, Tablet, [facility]/pharmacy #[id number], 167.6, cm, 03/20/19 8:28:00 EST, [...]
--- OUTSIDE RECORDS SUMMARY | 2022-06-30 08:44 | XMS_ITS | Continuity of Care Document ---
Author Name Unknown Organization [facility] Address [address] [place] [address]- Care Team Providers Care Bed Spring Maker Name Role Phone Michelle Artis NP Primary Care Physici an Encounter [facility] Date(s): 03/30/21 - 04/29/[address] [address]- Allergies, Adverse Reactions, Alerts No Known Allergies [...] 11/06/19 16:56:00 EDT, Route to Pharmacy Electronically, [facility] #[id number], 812.6, cm, 03/20/19 8:28:00... Start Date: 11/06/19 Status: Ordered cetirizine 10 mg oral tablet 1 tablet = 10 mg, By Mouth, Daily, # 30 tablet, 1 Refills, Maintenance, 05/23/18 14:31:47 EST, Tablet, Russian instructions Start Date: 05/23/18 Status: Ordered famotidine 10 mg oral tablet 1 tablet = 10 mg, By Mouth, 2 times a day, # 28 tablet, 0 Refills, Maintenance, 11/01/19 17:06:00 EDT, Tablet, [facility] #[id number], 167.6, cm, 03/20/19 8:28:00 EST, Height Start Date: 11/01/19 Stop Date: 11/15/19 Status: Ordered hydrocortisone 2.5% topical cream 1 application, Topically, 2 times a day, Apply thin film to affected area on face until symptoms resolve. Do use for more than 2 weeks., # 30 Gm, 0 Refills, Maintenance, 05/23/18 14:33:45 EST, Cream,Russian instructions, 1 application Topically 2 carina... Start Date: 05/23/18 Status: Ordered naproxen 500 mg oral tablet 1 tablet = 500 mg, By Mouth, 2 times a day, PRN Pain , Moderate, take regularly for 1-2 weeks then as needed, do not take with ibuprofen in namibian, # 30 tablet, 0 Refills, Maintenance, 02/13/19 14:04:28 EST, Tablet Start Date: 02/13/19 Status: Ordered ondansetron 4 mg oral tablet 1 tablet = 4 mg, By Mouth, Every 8 hours, PRN as needed for nausea/vomiting, # 12 tablet, 0 Refills, Maintenance, 11/01/19 14:06:00 EDT, Tablet, [facility]/pharmacy #[id number], 167.6, cm, 03/20/19 8:28:00 [...]
--- OUTSIDE RECORDS SUMMARY | 2022-06-30 08:44 | XMS_ITS | Continuity of Care Document ---
Author Name Unknown Organization [facility] Address [address] [place] [address]- Care Team Providers Care Grassroots Organizer Name Role Phone Chandra ROSE, Michelle Cruz Primary Care Physici an [facility] Date(s): 10/28/19 - 11/27/[address] [address]- [facility] Allergies, Adverse Reactions, Alerts Substance Reaction Severity [...] 11/06/19 16:56:00 EDT, Route to Pharmacy Electronically, [facility] #[id number], 104.6, cm, 03/20/19 8:28:00... Start Date: 11/06/19 Status: Ordered cetirizine 10 mg oral tablet 1 tablet = 10 mg, By Mouth, Daily, # 30 tablet, 1 Refills, Maintenance, 05/23/18 14:31:47 EST, Tablet, Citizen Of [place] instructions Start Date: 05/23/18 Status: Ordered famotidine 10 mg oral tablet 1 tablet = 10 mg, By Mouth, 2 times a day, # 28 tablet, 0 Refills, Maintenance, 11/01/19 17:06:00 EDT, Tablet, [facility] #[id number], 167.6, cm, 03/20/19 8:28:00 EST, Height Start Date: 11/01/19 Stop Date: 11/15/19 Status: Ordered hydrocortisone 2.5% topical cream 1 application, Topically, 2 times a day, Apply thin film to affected area on face until symptoms resolve. Do use for more than 2 weeks., # 30 Gm, 0 Refills, Maintenance, 05/23/18 14:33:45 EST, Cream,Citizen Of [place] instructions, 1 application Topically 2 carina... Start Date: 05/23/18 Status: Ordered naproxen 500 mg oral tablet 1 tablet = 500 mg, By Mouth, 2 times a day, PRN Pain , Moderate, take regularly for 1-2 weeks then as needed, do not take with ibuprofen in samoan, # 30 tablet, 0 Refills, Maintenance, 02/13/19 14:04:28 EST, Tablet Start Date: 02/13/19 Status: Ordered ondansetron 4 mg oral tablet 1 tablet = 4 mg, By Mouth, Every 8 hours, PRN as needed for nausea/vomiting, # 12 tablet, 0 Refills, Maintenance, 11/01/19 14:06:00 EDT, Tablet, [facility]/pharmacy #[id number], 167.6, cm, 03/20/19 8:28:00 [...]
--- OUTSIDE RECORDS SUMMARY | 2022-06-30 08:44 | XMS_ITS | Continuity of Care Document ---
Author Name Unknown Organization [facility] Address [address] [place] [address]- Care Team Providers Care Maintenance Mechanic 2Nd Shift Name Role Phone Chandra ROSE, Michelle Cruz Primary Care Physici an [place] [facility] [place] - 12/01/[address] [address]- [facility] Allergies, Adverse Reactions, Alerts Substance Reaction [...] 11/06/19 16:56:00 EDT, Route to Pharmacy Electronically, [facility] #[id number], 704.6, cm, 03/20/19 8:28:00... Start Date: 11/06/19 Status: Ordered cetirizine 10 mg oral tablet 1 tablet = 10 mg, By Mouth, Daily, # 30 tablet, 1 Refills, Maintenance, 05/23/18 14:31:47 EST, Tablet, [place]an instructions Start Date: 05/23/18 Status: Ordered famotidine 10 mg oral tablet 1 tablet = 10 mg, By Mouth, 2 times a day, # 28 tablet, 0 Refills, Maintenance, 11/01/19 17:06:00 EDT, Tablet, [facility] #[id number], 167.6, cm, 03/20/19 8:28:00 EST, Height Start Date: 11/01/19 Stop Date: 11/15/19 Status: Ordered hydrocortisone 2.5% topical cream 1 application, Topically, 2 times a day, Apply thin film to affected area on face until symptoms resolve. Do use for more than 2 weeks., # 30 Gm, 0 Refills, Maintenance, 05/23/18 14:33:45 EST, Cream,[place] instructions, 1 application Topically 2 carina... Start Date: 05/23/18 Status: Ordered naproxen 500 mg oral tablet 1 tablet = 500 mg, By Mouth, 2 times a day, PRN Pain , Moderate, take regularly for 1-2 weeks then as needed, do not take with ibuprofen in nigerian, # 30 tablet, 0 Refills, Maintenance, 02/13/19 14:04:28 EST, Tablet Start Date: 02/13/19 Status: Ordered ondansetron 4 mg oral tablet 1 tablet = 4 mg, By Mouth, Every 8 hours, PRN as needed for nausea/vomiting, # 12 tablet, 0 Refills, Maintenance, 11/01/19 14:06:00 EDT, Tablet, [facility]/pharmacy #[id number], 167.6, cm, 03/20/19 8:28:00 [...]
--- OUTSIDE RECORDS SUMMARY | 2022-06-30 08:44 | XMS_ITS | Continuity of Care Document ---
Author Name Unknown Organization [facility] Address [address] [place] [address]- Care Team Providers Care Custom Home Installer Name Role Phone Tate Mccall Primary Care Physician [phone] Encounter [facility] [place] Date(s): 03/05/19 - 03/15/[address] [address]- [facility] Attending Physician: Chirag Moseley Admitting Physician: AdmtrChirag Referring Physician: AdmtrChirag Allergies, Adverse Reactions, Alerts [...] 1 Refills, Maintenance, 05/23/18 14:31:47 EST, Tablet, Croatian instructions Start Date: 05/23/18 Status: Ordered hydrocortisone 2.5% topical cream 1 application, Topically, 2 times a day, Apply thin film to affected area on face until symptoms resolve. Do use for more than 2 weeks., # 30 Gm, 0 Refills, Maintenance, 05/23/18 14:33:45 EST, Cream,Croatian instructions, 1 application Topically 2 carina... Start Date: 05/23/18 Status: Ordered naproxen 500 mg oral tablet 1 tablet = 500 mg, By Mouth, 2 times a day, PRN Pain , Moderate, take regularly for 1-2 weeks then as needed, do not take with ibuprofen in frisian, # 30 tablet, 0 Refills, Maintenance, 02/13/19 [...]
--- OUTSIDE RECORDS SUMMARY | 2022-06-30 08:44 | XMS_ITS | Continuity of Care Document ---
Author Name Unknown Organization [facility] Address [address] [place] [address]- Care Team Providers Care Line Ordering Clinician Name Role Phone Chandra ROSE, Michelel Cruz Primary Care Physici an [place] [facility] [place] Date(s): 08/11/21 - 09/23/[address] [address]- Attending Physician: Not on Staff, Attending MD Referring Physician: Michelle Artis NP Allergies, Adverse Reactions, Alerts No Known Allergies [...] 11/06/19 16:56:00 EDT, Route to Pharmacy Electronically, [facility] #[id number], 167.6, cm, 03/20/19 8:28:00... Start Date: 11/06/19 Status: Ordered cetirizine 10 mg oral tablet 1 tablet = 10 mg, By Mouth, Daily, # 30 tablet, 1 Refills, Maintenance, 05/23/18 14:31:47 EST, Tablet, Burmese instructions Start Date: 05/23/18 Status: Ordered famotidine 10 mg oral tablet 1 tablet = 10 mg, By Mouth, 2 times a day, # 28 tablet, 0 Refills, Maintenance, 11/01/19 17:06:00 EDT, Tablet, [facility] #[id number], 167.6, cm, 03/20/19 8:28:00 EST, Height Start Date: 11/01/19 Stop Date: 11/15/19 Status: Ordered hydrocortisone 2.5% topical cream 1 application, Topically, 2 times a day, Apply thin film to affected area on face until symptoms resolve. Do use for more than 2 weeks., # 30 Gm, 0 Refills, Maintenance, 05/23/18 14:33:45 EST, Cream,Burmese instructions, 1 application Topically 2 carina... Start Date: 05/23/18 Status: Ordered naproxen 500 mg oral tablet 1 tablet = 500 mg, By Mouth, 2 times a day, PRN Pain , Moderate, take regularly for 1-2 weeks then as needed, do not take with ibuprofen in lebanese, # 30 tablet, 0 Refills, Maintenance, 02/13/19 14:04:28 EST, Tablet Start Date: 02/13/19 Status: Ordered ondansetron 4 mg oral tablet 1 tablet = 4 mg, By Mouth, Every 8 hours, PRN as needed for nausea/vomiting, # 12 tablet, 0 Refills, Maintenance, 11/01/19 14:06:00 EDT, Tablet, [facility]/pharmacy #[id number], 167.6, cm, 03/20/19 8:28:00 EST, Height [...]
--- OUTSIDE RECORDS SUMMARY | 2022-06-30 08:44 | XMS_ITS | Continuity of Care Document ---
Author Name Unknown Organization [facility] Address [address] [place] [address]- Care Team Providers Care Trolley Wire Installer Name Role Phone Tate Mccall Primary Care Physician En[place] [facility] [place] Date(s): 03/04/19 - 03/14/[address] [address]- [facility] Attending Physician: Chirag Moseley Admitting Physician: AdmChirag [...] Chadian instructions Start Date: 05/23/18 Status: Ordered hydrocortisone [...] needed, do not take with ibuprofen in kinyarwanda, # 30 tablet, 0 Refills, Maintenance, 02/13/19 [...]
--- OUTSIDE RECORDS SUMMARY | 2022-06-30 08:44 | XMS_ITS | Continuity of Care Document ---
Author Name Unknown Organization [facility] Address [address] [place] [address]- Care Team Providers Care Laboratory Mechanical Technician Name Role Phone Michelle Artis NP Primary Care Physici an Encounter [facility] Date(s): 09/23/20 - 11/12/[address] [address]- Attending Physician: Tate Mccall MD Admitting Physician: Tate Mccall MD Allergies, Adverse Reactions, Alerts Substance Reaction Severity [...] 11/06/19 16:56:00 EDT, Route to Pharmacy Electronically, [facility] #[id number], 167.6, cm, 03/20/19 8:28:00... Start Date: 11/06/19 Status: Ordered cetirizine 10 mg oral tablet 1 tablet = 10 mg, By Mouth, Daily, # 30 tablet, 1 Refills, Maintenance, 05/23/18 14:31:47 EST, Tablet, Panamanian instructions Start Date: 05/23/18 Status: Ordered famotidine 10 mg oral tablet 1 tablet = 10 mg, By Mouth, 2 times a day, # 28 tablet, 0 Refills, Maintenance, 11/01/19 17:06:00 EDT, Tablet, [facility] #[id number], 167.6, cm, 03/20/19 8:28:00 EST, Height Start Date: 11/01/19 Stop Date: 11/15/19 Status: Ordered hydrocortisone 2.5% topical cream 1 application, Topically, 2 times a day, Apply thin film to affected area on face until symptoms resolve. Do use for more than 2 weeks., # 30 Gm, 0 Refills, Maintenance, 05/23/18 14:33:45 EST, Cream,Panamanian instructions, 1 application Topically 2 carina... Start Date: 05/23/18 Status: Ordered naproxen 500 mg oral tablet 1 tablet = 500 mg, By Mouth, 2 times a day, PRN Pain , Moderate, take regularly for 1-2 weeks then as needed, do not take with ibuprofen in uzbek, # 30 tablet, 0 Refills, Maintenance, 02/13/19 14:04:28 EST, Tablet Start Date: 02/13/19 Status: Ordered ondansetron 4 mg oral tablet 1 tablet = 4 mg, By Mouth, Every 8 hours, PRN as needed for nausea/vomiting, # 12 tablet, 0 Refills, Maintenance, 11/01/19 14:06:00 EDT, Tablet, [facility] #[id number], 167.6, cm, 03/20/19 8:28:00 EST, Height [...]
--- OUTSIDE RECORDS SUMMARY | 2022-06-30 08:44 | XMS_ITS | Continuity of Care Document ---
Author Name Unknown Organization [facility] Address Unknown Care Team Providers Care Digital Associate Name Role Phone Chandra ROSE, Michelle Cruz Primary Care Physici an [place] [facility] [place] 03/[place] - 04/06/21 [facility] Attending Physician: Kb Dowd MD Referring Physician: Michelle Artis NP Allergies, [...] 11/06/19 16:56:00 EDT, Route to Pharmacy Electronically, [facility] #[id number], 710.6, cm, 03/20/19 8:28:00... Start Date: 11/06/19 Status: Ordered cetirizine 10 mg oral tablet 1 tablet = 10 mg, By Mouth, Daily, # 30 tablet, 1 Refills, Maintenance, 05/23/18 14:31:47 EST, Tablet, North Korean instructions Start Date: 05/23/18 Status: Ordered famotidine 10 mg oral tablet 1 tablet = 10 mg, By Mouth, 2 times a day, # 28 tablet, 0 Refills, Maintenance, 11/01/19 17:06:00 EDT, Tablet, [facility] #[id number], 167.6, cm, 03/20/19 8:28:00 EST, Height Start Date: 11/01/19 Stop Date: 11/15/19 Status: Ordered hydrocortisone 2.5% topical cream 1 application, Topically, 2 times a day, Apply thin film to affected area on face until symptoms resolve. Do use for more than 2 weeks., # 30 Gm, 0 Refills, Maintenance, 05/23/18 14:33:45 EST, Cream,North Korean instructions, 1 application Topically 2 carina... Start Date: 05/23/18 Status: Ordered naproxen 500 mg oral tablet 1 tablet = 500 mg, By Mouth, 2 times a day, PRN Pain , Moderate, take regularly for 1-2 weeks then as needed, do not take with ibuprofen in yak[place], # 30 tablet, 0 Refills, Maintenance, 02/13/19 14:04:28 EST, Tablet Start Date: 02/13/19 Status: Ordered ondansetron 4 mg oral tablet 1 tablet = 4 mg, By Mouth, Every 8 hours, PRN as needed for nausea/vomiting, # 12 tablet, 0 Refills, Maintenance, 11/01/19 14:06:00 EDT, Tablet, [facility]/pharmacy #[id number], 167.6, cm, 03/20/19 8:28:00 EST, Height [...] oldest [Reference Range]: 1 Height 165 cm (03/30/21 2:56 PM) Weight 129.2 kg (03/30/21 2:56 PM) Body Mass Index [18.5-24.99] 47.46 *>HHI* (03/30/21 2:56 PM) Respiratory Rate [16-30 br/min] 16 br/mi n (03/30/21 2:56 PM) Temperature [96.8-100.4 DegF] 97.0 DegF (03/30/21 2:56 PM) Blood pressure sites Arm, right (03/30/21 2:56 PM) Temperature Route Temporal (03/30/21 2:56 PM) Weight Obtained Via Standing scale (03/30/21 2:56 PM) Social History Social History Type Response Smoking Status Never smoker entered on: 12/31/15 Sex
--- OUTSIDE RECORDS SUMMARY | 2022-06-30 08:44 | XMS_ITS | Continuity of Care Document ---
Author Name Unknown Organization [facility] Address Unknown Care Team Providers Care Package Dyer Name Role Phone Chandra ROSE, Michelle Barney Tagcelena Primary Care Physici an Encounter [facility] Date(s): 03/24/21 - 03/31/21 [facility] Attending Physician: Silvana Thomas [...] 11/06/19 16:56:00 EDT, Route to Pharmacy Electronically, [facility] #[id number], 922.6, cm, 03/20/19 8:28:00... Start Date: 11/06/19 Status: Ordered cetirizine 10 mg oral tablet 1 tablet = 10 mg, By Mouth, Daily, # 30 tablet, 1 Refills, Maintenance, 05/23/18 14:31:47 EST, Tablet, Cook Islander instructions Start Date: 05/23/18 Status: Ordered famotidine 10 mg oral tablet 1 tablet = 10 mg, By Mouth, 2 times a day, # 28 tablet, 0 Refills, Maintenance, 11/01/19 17:06:00 EDT, Tablet, [facility] #[id number], 167.6, cm, 03/20/19 8:28:00 EST, Height Start Date: 11/01/19 Stop Date: 11/15/19 Status: Ordered hydrocortisone 2.5% topical cream 1 application, Topically, 2 times a day, Apply thin film to affected area on face until symptoms resolve. Do use for more than 2 weeks., # 30 Gm, 0 Refills, Maintenance, 05/23/18 14:33:45 EST, Cream,Cook Islander instructions, 1 application Topically 2 carina... Start Date: 05/23/18 Status: Ordered naproxen 500 mg oral tablet 1 tablet = 500 mg, By Mouth, 2 times a day, PRN Pain , Moderate, take regularly for 1-2 weeks then as needed, do not take with ibuprofen in qatari, # 30 tablet, 0 Refills, Maintenance, 02/13/19 14:04:28 EST, Tablet Start Date: 02/13/19 Status: Ordered ondansetron 4 mg oral tablet 1 tablet = 4 mg, By Mouth, Every 8 hours, PRN as needed for nausea/vomiting, # 12 tablet, 0 Refills, Maintenance, 11/01/19 14:06:00 EDT, Tablet, [facility]/pharmacy #[id number], 167.6, cm, 03/20/19 [...] oldest [Reference Range]: 1 Height 165 cm (03/24/21 3:21 PM) Weight 130.2 kg (03/24/21 3:21 PM) Body Mass Index [18.5-24.99] 47.82 *>HHI* (03/24/21 3:21 PM) Social History Social History Type Response Smoking Status Never smoker entered on: 12/31/15 Sex
--- OUTSIDE RECORDS SUMMARY | 2022-06-30 08:45 | XMS_ITS | Continuity of Care Document ---
Author Name Unknown Organization [facility] Address Unknown Care Team Providers Care Furniture Mover Name Role Phone Chandra ROSE, Michelle Cruz Primary Care Physici an [place] [facility] [place](s): 12/04/20 - 12/11/20 [facility] Attending Physician: Silvana Thomas RD Referring Physician: Michelle Artis NP Allergies, Adverse [...] 11/06/19 16:56:00 EDT, Route to Pharmacy Electronically, [facility] #[id number], 167.6, cm, 03/20/19 8:28:00... Start Date: 11/06/19 Status: Ordered cetirizine 10 mg oral tablet 1 tablet = 10 mg, By Mouth, Daily, # 30 tablet, 1 Refills, Maintenance, 05/23/18 14:31:47 EST, Tablet, [place]guillan instructions Start Date: 05/23/18 Status: Ordered famotidine 10 mg oral tablet 1 tablet = 10 mg, By Mouth, 2 times a day, # 28 tablet, 0 Refills, Maintenance, 11/01/19 17:06:00 EDT, Tablet, [facility] #[id number], 167.6, cm, 03/20/19 8:28:00 EST, Height Start Date: 11/01/19 Stop Date: 11/15/19 Status: Ordered hydrocortisone 2.5% topical cream 1 application, Topically, 2 times a day, Apply thin film to affected area on face until symptoms resolve. Do use for more than 2 weeks., # 30 Gm, 0 Refills, Maintenance, 05/23/18 14:33:45 EST, Cream,Angu[place]an instructions, 1 application Topically 2 carina... Start Date: 05/23/18 Status: Ordered naproxen 500 mg oral tablet 1 tablet = 500 mg, By Mouth, 2 times a day, PRN Pain , Moderate, take regularly for 1-2 weeks then as needed, do not take with ibuprofen in romanian, # 30 tablet, 0 Refills, Maintenance, 02/13/19 14:04:28 EST, Tablet Start Date: 02/13/19 Status: Ordered ondansetron 4 mg oral tablet 1 tablet = 4 mg, By Mouth, Every 8 hours, PRN as needed for nausea/vomiting, # 12 tablet, 0 Refills, Maintenance, 11/01/19 14:06:00 EDT, Tablet, [facility]/pharmacy #[id number], 167.6, cm, 03/20/19 8:28:00 EST, Height [...] oldest [Reference Range]: 1 Height 165 cm (12/04/20 11:09 AM) Weight 132 kg (12/04/20 11:09 AM) Body Mass Index [18.5-24.99] 48.48 *>HHI* (12/04/20 11:09 AM) Social History Social History Type Response Smoking Status Never smoker entered on: 12/31/15 Sex
--- OUTSIDE RECORDS SUMMARY | 2022-06-30 08:45 | XMS_ITS | Continuity of Care Document ---
Author Name Unknown Organization [facility] Address [address] [place] [address]- Care Team Providers Care Supervisor Cutting And Sewing Room Name Role Phone Chandra ROSE, Michelle Cruz Primary Care Physici an [facility]counter [facility] Date(s): 11/01/19 - 12/01/[address] [address] Allergies, Adverse Reactions, Alerts Substance Reaction Severity [...] 11/06/19 16:56:00 EDT, Route to Pharmacy Electronically, [facility] #[id number], 949.6, cm, 03/20/19 8:28:00... Start Date: 11/06/19 Status: Ordered cetirizine 10 mg oral tablet 1 tablet = 10 mg, By Mouth, Daily, # 30 tablet, 1 Refills, Maintenance, 05/23/18 14:31:47 EST, Tablet, Indonesian instructions Start Date: 05/23/18 Status: Ordered famotidine 10 mg oral tablet 1 tablet = 10 mg, By Mouth, 2 times a day, # 28 tablet, 0 Refills, Maintenance, 11/01/19 17:06:00 EDT, Tablet, [facility] #[id number], 167.6, cm, 03/20/19 8:28:00 EST, Height Start Date: 11/01/19 Stop Date: 11/15/19 Status: Ordered hydrocortisone 2.5% topical cream 1 application, Topically, 2 times a day, Apply thin film to affected area on face until symptoms resolve. Do use for more than 2 weeks., # 30 Gm, 0 Refills, Maintenance, 05/23/18 14:33:45 EST, Cream,Indonesian instructions, 1 application Topically 2 carina... Start Date: 05/23/18 Status: Ordered naproxen 500 mg oral tablet 1 tablet = 500 mg, By Mouth, 2 times a day, PRN Pain , Moderate, take regularly for 1-2 weeks then as needed, do not take with ibuprofen in citizen of [place], # 30 tablet, 0 Refills, Maintenance, 02/13/19 14:04:28 EST, Tablet Start Date: 02/13/19 Status: Ordered ondansetron 4 mg oral tablet 1 tablet = 4 mg, By Mouth, Every 8 hours, PRN as needed for nausea/vomiting, # 12 tablet, 0 Refills, Maintenance, 11/01/19 14:06:00 EDT, Tablet, [facility]/pharmacy #[id number], 167.6, cm, 03/20/19 8:28:00 [...]
--- OUTSIDE RECORDS SUMMARY | 2022-06-30 08:45 | XMS_ITS | Continuity of Care Document ---
Author Name Unknown Organization [facility] ter Address [address] [place] [address]- Care Team Providers Care Loan Interviewer Mortgage Name Role Phone Chandra ROSE, Michelle Cruz Primary Care Physici an [facility] Date[facility]s): 03/[facility]/19 - 03/20/[address] [address]- [facility] Discharge Disposition: A-D/C Home Attending Physician: Jann Mccarty MD Admitting Physician: Jann Mccarty MD Referring Physician: Jann Mccarty MD Allergies, Adverse Reactions, Alerts Substance Reaction [...] 1 Refills, Maintenance, 05/23/18 14:31:47 EST, Tablet, Iranian instructions Start Date: 05/23/18 Status: Ordered hydrocortisone 2.5% topical cream 1 application, Topically, 2 times a day, Apply thin film to affected area on face until symptoms resolve. Do use for more than 2 weeks., # 30 Gm, 0 Refills, Maintenance, 05/23/18 14:33:45 EST, Cream,Iranian instructions, 1 application Topically 2 carina... Start Date: 05/23/18 Status: Ordered naproxen 500 mg oral tablet 1 tablet = 500 mg, By Mouth, 2 times a day, PRN Pain , Moderate, take regularly for 1-2 weeks then as needed, do not take with ibuprofen in azeri, # 30 tablet, 0 Refills, Maintenance, 02/13/19 [...] Active 1repeat mammo in 6 mos- 07/2019 Procedures Procedure Date Related Diagnosis Body Site Status Colonoscopy 03/20/19 Completed Vital Signs Most recent to oldest [Reference Range]: 1 2 3 Height 167.6 cm (03/20/19 8:28 AM) Weight 100.2 kg (03/20/19 8:28 AM) Oxygen Saturation [94-100 %] 98 % (03/20/19 9:11 AM) 94 % (03/20/19 9:04 AM) 100 % (03/20/19 8:28 AM) Pulse Rate [55-90 bpm] 79 bpm (03/20/19 8:28 AM) Body Mass Index [18.5-24.99] 35.67 *>HHI* (03/20/19 8:28 AM) Blood Pressure [90-138/55-84 mm Hg] 102/76mm Hg (03/20/19 9:11 AM) 114/71mm Hg (03/20/19 9:04 AM) 158/105mm Hg *H* (03/20/19 8:28 AM) Respiratory Rate [16-30 br/min] 20 br/min (03/20/19 9:11 AM) 18 br/min (03/20/19 9:04 AM) 20 br/min (03/20/19 8:28 AM) Temperature [96.8-100.4 DegF] 97.7 DegF (03/20/19 8:28 AM) Mode of Delivery (Oxygen) Room air (03/20/19 9:11 AM) Room air (03/20/19 9:04 AM) Room air (03/20/19 8:28 AM) Blood pressure sites Arm, left (03/20/19 9:11 AM) Arm, left (03/20/19 9:04 AM) Arm, left (03/20/19 8:28 AM) Temperature Route Temporal (03/20/19 8:28 AM) Weight Obtained Via Patient/family state d (03/20/19 8:28 AM) Social History Social History Type Response Smoking Status Never smoker entered on: 12/31/15 Sex
--- OUTSIDE RECORDS SUMMARY | 2022-06-30 08:45 | XMS_ITS | Continuity of Care Document ---
Author Name Unknown Organization [facility] Address Unknown Care Team Providers Care Offal Baler Name Role Phone Michelle Artis NP [place] Primary Care Physici an [place] [facility] [place] [place] [id number] Date(s): 03/24/21 - 06/04/21 [facility] Attending Physician: Silvana Thomas RD Allergies, Adverse Reactions, Alerts No Known Allergies [...] 11/06/19 16:56:00 EDT, Route to Pharmacy Electronically, [facility] #[id number], 624.6, cm, 03/20/19 8:28:00... Start Date: 11/06/19 Status: Ordered cetirizine 10 mg oral tablet 1 tablet = 10 mg, By Mouth, Daily, # 30 tablet, 1 Refills, Maintenance, 05/23/18 14:31:47 EST, Tablet, Macedonian instructions Start Date: 05/23/18 Status: Ordered famotidine 10 mg oral tablet 1 tablet = 10 mg, By Mouth, 2 times a day, # 28 tablet, 0 Refills, Maintenance, 11/01/19 17:06:00 EDT, Tablet, [facility] #[id number], 167.6, cm, 03/20/19 8:28:00 EST, Height Start Date: 11/01/19 Stop Date: 11/15/19 Status: Ordered hydrocortisone 2.5% topical cream 1 application, Topically, 2 times a day, Apply thin film to affected area on face until symptoms resolve. Do use for more than 2 weeks., # 30 Gm, 0 Refills, Maintenance, 05/23/18 14:33:45 EST, Cream,Macedonian instructions, 1 application Topically 2 carina... Start Date: 05/23/18 Status: Ordered naproxen 500 mg oral tablet 1 tablet = 500 mg, By Mouth, 2 times a day, PRN Pain , Moderate, take regularly for 1-2 weeks then as needed, do not take with ibuprofen in romansh, # 30 tablet, 0 Refills, Maintenance, 02/13/19 14:04:28 EST, Tablet Start Date: 02/13/19 Status: Ordered ondansetron 4 mg oral tablet 1 tablet = 4 mg, By Mouth, Every 8 hours, PRN as needed for nausea/vomiting, # 12 tablet, 0 Refills, Maintenance, 11/01/19 14:06:00 EDT, Tablet, [facility]/pharmacy #[id number], 167.6, cm, 03/20/19 [...]
--- OUTSIDE RECORDS SUMMARY | 2022-06-30 08:45 | XMS_ITS | Continuity of Care Document ---
Author Name Unknown Organization [facility] Address [address] [place] [address]- Care Team Providers Care Heel Stainer Name Role Phone Chandra ROSE, Michelle Cruz Primary Care Physici an [place] [facility] [place]07[place] - 05/07/[address] [address]- Allergies, Adverse Reactions, Alerts Substance Reaction Severity [...] 11/06/19 16:56:00 EDT, Route to Pharmacy Electronically, [facility] #[id number], 543.6, cm, 03/20/19 8:28:00... Start Date: 11/06/19 Status: Ordered cetirizine 10 mg oral tablet 1 tablet = 10 mg, By Mouth, Daily, # 30 tablet, 1 Refills, Maintenance, 05/23/18 14:31:47 EST, Tablet, Bermudian instructions Start Date: 05/23/18 Status: Ordered famotidine 10 mg oral tablet 1 tablet = 10 mg, By Mouth, 2 times a day, # 28 tablet, 0 Refills, Maintenance, 11/01/19 17:06:00 EDT, Tablet, [facility] #[id number], 167.6, cm, 03/20/19 8:28:00 EST, Height Start Date: 11/01/19 Stop Date: 11/15/19 Status: Ordered hydrocortisone 2.5% topical cream 1 application, Topically, 2 times a day, Apply thin film to affected area on face until symptoms resolve. Do use for more than 2 weeks., # 30 Gm, 0 Refills, Maintenance, 05/23/18 14:33:45 EST, Cream,Bermudian instructions, 1 application Topically 2 carina... Start Date: 05/23/18 Status: Ordered naproxen 500 mg oral tablet 1 tablet = 500 mg, By Mouth, 2 times a day, PRN Pain , Moderate, take regularly for 1-2 weeks then as needed, do not take with ibuprofen in portuguese, # 30 tablet, 0 Refills, Maintenance, 02/13/19 14:04:28 EST, Tablet Start Date: 02/13/19 Status: Ordered ondansetron 4 mg oral tablet 1 tablet = 4 mg, By Mouth, Every 8 hours, PRN as needed for nausea/vomiting, # 12 tablet, 0 Refills, Maintenance, 11/01/19 14:06:00 EDT, Tablet, [facility]/pharmacy #[id number], 167.6, cm, 03/20/19 8:28:00 [...]
--- OUTSIDE RECORDS SUMMARY | 2022-06-30 08:45 | XMS_ITS | Continuity of Care Document ---
Author Name Unknown Organization [facility] Address [address] [place] [address]- Care Team Providers Care Obstetrics Nurse Practitioner Name Role Phone Michelle Artis NP Primary Care Physici an Encounter [facility] [place] R [id number] Date(s): 11/05/20 - 12/05/[address] [address]- Attending Physician: Chirag Moseley Admitting Physician: Chirag [...] 11/06/19 16:56:00 EDT, Route to Pharmacy Electronically, [facility] #[id number], 167.6, cm, 03/20/19 8:28:00... Start Date: 11/06/19 Status: Ordered cetirizine 10 mg oral tablet 1 tablet = 10 mg, By Mouth, Daily, # 30 tablet, 1 Refills, Maintenance, 05/23/18 14:31:47 EST, Tablet, Norwegian instructions Start Date: 05/23/18 Status: Ordered famotidine 10 mg oral tablet 1 tablet = 10 mg, By Mouth, 2 times a day, # 28 tablet, 0 Refills, Maintenance, 11/01/19 17:06:00 EDT, Tablet, [facility] #[id number], 167.6, cm, 03/20/19 8:28:00 EST, Height Start Date: 11/01/19 Stop Date: 11/15/19 Status: Ordered hydrocortisone 2.5% topical cream 1 application, Topically, 2 times a day, Apply thin film to affected area on face until symptoms resolve. Do use for more than 2 weeks., # 30 Gm, 0 Refills, Maintenance, 05/23/18 14:33:45 EST, Cream,Norwegian instructions, 1 application Topically 2 carina... Start Date: 05/23/18 Status: Ordered naproxen 500 mg oral tablet 1 tablet = 500 mg, By Mouth, 2 times a day, PRN Pain , Moderate, take regularly for 1-2 weeks then as needed, do not take with ibuprofen in faroese, # 30 tablet, 0 Refills, Maintenance, 02/13/19 [...]
--- OUTSIDE RECORDS SUMMARY | 2022-06-30 08:45 | XMS_ITS | Continuity of Care Document ---
Author Name Unknown Organization [facility] Address [address] [place] [address]- Care Team Providers Care Roofing Subcontractor Name Role Phone Chandra ROSE, Michelle Cruz Primary Care Physici an Encounter [facility] [place] [facility] R [id number] Date(s): 05/31/19 - 06/10/[address] [address]- [facility] Attending Physician: Chirag Moseley Admitting Physician: Chirag [...] Macedonian instructions Start Date: 05/23/18 Status: Ordered hydrocortisone [...]
--- OUTSIDE RECORDS SUMMARY | 2022-06-30 08:45 | XMS_ITS | Continuity of Care Document ---
Author Name Unknown Organization [facility] Address [address] [place] [address]- Care Team Providers Care Ship'S Pilot Name Role Phone Michelle Artis NP Primary Care Physici an [facility] Date[facility]s): 09/14/20 - 10/14/[address] [address] Allergies, Adverse Reactions, Alerts Substance Reaction Severity [...] 11/06/19 16:56:00 EDT, Route to Pharmacy Electronically, [facility] #[id number], 992.6, cm, 03/20/19 8:28:00... Start Date: 11/06/19 Status: Ordered cetirizine 10 mg oral tablet 1 tablet = 10 mg, By Mouth, Daily, # 30 tablet, 1 Refills, Maintenance, 05/23/18 14:31:47 EST, Tablet, Divehi instructions Start Date: 05/23/18 Status: Ordered famotidine 10 mg oral tablet 1 tablet = 10 mg, By Mouth, 2 times a day, # 28 tablet, 0 Refills, Maintenance, 11/01/19 17:06:00 EDT, Tablet, [facility] #[id number], 167.6, cm, 03/20/19 8:28:00 EST, Height Start Date: 11/01/19 Stop Date: 11/15/19 Status: Ordered hydrocortisone 2.5% topical cream 1 application, Topically, 2 times a day, Apply thin film to affected area on face until symptoms resolve. Do use for more than 2 weeks., # 30 Gm, 0 Refills, Maintenance, 05/23/18 14:33:45 EST, Cream,Divehi instructions, 1 application Topically 2 carina... Start Date: 05/23/18 Status: Ordered naproxen 500 mg oral tablet 1 tablet = 500 mg, By Mouth, 2 times a day, PRN Pain , Moderate, take regularly for 1-2 weeks then as needed, do not take with ibuprofen in swedish, # 30 tablet, 0 Refills, Maintenance, 02/13/19 14:04:28 EST, Tablet Start Date: 02/13/19 Status: Ordered ondansetron 4 mg oral tablet 1 tablet = 4 mg, By Mouth, Every 8 hours, PRN as needed for nausea/vomiting, # 12 tablet, 0 Refills, Maintenance, 11/01/19 14:06:00 EDT, Tablet, [facility]/pharmacy #[id number], 167.6, cm, 03/20/19 8:28:00 EST, Height [...]
--- OUTSIDE RECORDS SUMMARY | 2022-06-30 08:45 | XMS_ITS | Continuity of Care Document ---
Author Name Unknown Organization [facility] ter Address [address] [place] [address]- Care Team Providers Care Porcelain Turner Name Role Phone Chandra ROSE, Michelle Cruz Primary Care Physici an [facility] Date(s): 06/14/21 - 07/31/[address] [address]- Attending Physician: Michelle Artis NP Admitting Physician: [...] 11/06/19 16:56:00 EDT, Route to Pharmacy Electronically, [facility] #[id number], 167.6, cm, 03/20/19 8:28:00... Start Date: 11/06/19 Status: Ordered cetirizine 10 mg oral tablet 1 tablet = 10 mg, By Mouth, Daily, # 30 tablet, 1 Refills, Maintenance, 05/23/18 14:31:47 EST, Tablet, Guinean instructions Start Date: 05/23/18 Status: Ordered famotidine 10 mg oral tablet 1 tablet = 10 mg, By Mouth, 2 times a day, # 28 tablet, 0 Refills, Maintenance, 11/01/19 17:06:00 EDT, Tablet, [facility] #[id number], 167.6, cm, 03/20/19 8:28:00 EST, Height Start Date: 11/01/19 Stop Date: 11/15/19 Status: Ordered hydrocortisone 2.5% topical cream 1 application, Topically, 2 times a day, Apply thin film to affected area on face until symptoms resolve. Do use for more than 2 weeks., # 30 Gm, 0 Refills, Maintenance, 05/23/18 14:33:45 EST, Cream,Guinean instructions, 1 application Topically 2 carina... Start Date: 05/23/18 Status: Ordered naproxen 500 mg oral tablet 1 tablet = 500 mg, By Mouth, 2 times a day, PRN Pain , Moderate, take regularly for 1-2 weeks then as needed, do not take with ibuprofen in jamaican, # 30 tablet, 0 Refills, Maintenance, 02/13/19 14:04:28 EST, Tablet Start Date: 02/13/19 Status: Ordered ondansetron 4 mg oral tablet 1 tablet = 4 mg, By Mouth, Every 8 hours, PRN as needed for nausea/vomiting, # 12 tablet, 0 Refills, Maintenance, 11/01/19 14:06:00 EDT, Tablet, [facility]/pharmacy #[id number], 167.6, cm, 03/20/19 8:28:00 [...]
--- OUTSIDE RECORDS SUMMARY | 2022-06-30 08:45 | XMS_ITS | Continuity of Care Document ---
Author Name Unknown Organization [facility] Address [address] [place] [address]- Care Team Providers Care Transit Driver Name Role Phone Michelle Artis NP Primary Care Physici an [facility] Date(s): 09/09/20 - 10/09/[address] [address] Allergies, Adverse Reactions, Alerts Substance Reaction Severity [...] 11/06/19 16:56:00 EDT, Route to Pharmacy Electronically, [facility] #[id number], 934.6, cm, 03/20/19 8:28:00... Start Date: 11/06/19 Status: Ordered cetirizine 10 mg oral tablet 1 tablet = 10 mg, By Mouth, Daily, # 30 tablet, 1 Refills, Maintenance, 05/23/18 14:31:47 EST, Tablet, German instructions Start Date: 05/23/18 Status: Ordered famotidine 10 mg oral tablet 1 tablet = 10 mg, By Mouth, 2 times a day, # 28 tablet, 0 Refills, Maintenance, 11/01/19 17:06:00 EDT, Tablet, [facility] #[id number], 167.6, cm, 03/20/19 8:28:00 EST, Height Start Date: 11/01/19 Stop Date: 11/15/19 Status: Ordered hydrocortisone 2.5% topical cream 1 application, Topically, 2 times a day, Apply thin film to affected area on face until symptoms resolve. Do use for more than 2 weeks., # 30 Gm, 0 Refills, Maintenance, 05/23/18 14:33:45 EST, Cream,German instructions, 1 application Topically 2 carina... Start [...] 0 Refills, Maintenance, 11/01/19 14:06:00 EDT, Tablet, [facility]/pharmacy #[id number], 167.6, cm, 03/20/19 8:28:00 EST, [...]
--- OUTSIDE RECORDS SUMMARY | 2022-06-30 08:45 | XMS_ITS | Continuity of Care Document ---
Author Name Unknown Organization [facility] Address [address] [place] [address]- Care Team Providers Care Property And Casualty Insurance Agent Name Role Phone Michelle Artis NP Primary Care Physici an [facility] Date(s): 02/27/19 - 04/04/[address] [address]- [facility] Attending Physician: Jade Green DO Admitting Physician: Jade Green DO Referring Physician: Jade Green DO Allergies, Adverse Reactions, Alerts Substance Reaction Severity [...] 1 Refills, Maintenance, 05/23/18 14:31:47 EST, Tablet, Lithuanian instructions Start Date: 05/23/18 Status: Ordered hydrocortisone 2.5% topical cream 1 application, Topically, 2 times a day, Apply thin film to affected area on face until symptoms resolve. Do use for more than 2 weeks., # 30 Gm, 0 Refills, Maintenance, 05/23/18 14:33:45 EST, Cream,Lithuanian instructions, 1 application Topically 2 carina... Start Date: 05/23/18 Status: Ordered naproxen 500 mg oral tablet 1 tablet = 500 mg, By Mouth, 2 times a day, PRN Pain , Moderate, take regularly for 1-2 weeks then as needed, do not take with ibuprofen in khmer, # 30 tablet, 0 Refills, Maintenance, 02/13/19 [...]
--- OUTSIDE RECORDS SUMMARY | 2022-06-30 08:45 | XMS_ITS | Continuity of Care Document ---
Author Name Unknown Organization [facility] Address [address] [place] [address]- Care Team Providers Care Pump Tender Name Role Phone Chandra ROSE, Michelle Cruz Primary Care Physici an [facility] Date(s): 08/21/20 - 09/20/[address] [address]- Allergies, Adverse Reactions, Alerts Substance Reaction Severity [...] 11/06/19 16:56:00 EDT, Route to Pharmacy Electronically, [facility] #[id number], 895.6, cm, 03/20/19 8:28:00... Start Date: 11/06/19 Status: Ordered cetirizine 10 mg oral tablet 1 tablet = 10 mg, By Mouth, Daily, # 30 tablet, 1 Refills, Maintenance, 05/23/18 14:31:47 EST, Tablet, Cymro instructions Start Date: 05/23/18 Status: Ordered famotidine 10 mg oral tablet 1 tablet = 10 mg, By Mouth, 2 times a day, # 28 tablet, 0 Refills, Maintenance, 11/01/19 17:06:00 EDT, Tablet, [facility] #[id number], 167.6, cm, 03/20/19 8:28:00 EST, Height Start Date: 11/01/19 Stop Date: 11/15/19 Status: Ordered hydrocortisone 2.5% topical cream 1 application, Topically, 2 times a day, Apply thin film to affected area on face until symptoms resolve. Do use for more than 2 weeks., # 30 Gm, 0 Refills, Maintenance, 05/23/18 14:33:45 EST, Cream,Cymro instructions, 1 application Topically 2 carina... Start Date: 05/23/18 Status: Ordered naproxen 500 mg oral tablet 1 tablet = 500 mg, By Mouth, 2 times a day, PRN Pain , Moderate, take regularly for 1-2 weeks then as needed, do not take with ibuprofen in sinhala, # 30 tablet, 0 Refills, Maintenance, 02/13/19 14:04:28 EST, Tablet Start Date: 02/13/19 Status: Ordered ondansetron 4 mg oral tablet 1 tablet = 4 mg, By Mouth, Every 8 hours, PRN as needed for nausea/vomiting, # 12 tablet, 0 Refills, Maintenance, 11/01/19 14:06:00 EDT, Tablet, [facility]/pharmacy #[id number], 167.6, cm, 03/20/19 8:28:00 [...]
--- OUTSIDE RECORDS SUMMARY | 2022-06-30 08:45 | XMS_ITS | Continuity of Care Document ---
Author Name Unknown Organization [facility] Address [address] [place] [address]- Care Team Providers Care Full Stack Web Developer Name Role Phone Michelle Artis NP Primary Care Physici an Encounter [facility] [place] [place] R [id number] Date(s): 09/07/21 - 10/07/[address] [address]- Attending Physician: Chirag Moseley Admitting Physician: AdmtrChirag [...] 11/06/19 16:56:00 EDT, Route to Pharmacy Electronically, [facility] #[id number], 167.6, cm, 03/20/19 8:28:00... Start Date: 11/06/19 Status: Ordered cetirizine 10 mg oral tablet 1 tablet = 10 mg, By Mouth, Daily, # 30 tablet, 1 Refills, Maintenance, 05/23/18 14:31:47 EST, Tablet, Croatian instructions Start Date: 05/23/18 Status: Ordered famotidine 10 mg oral tablet 1 tablet = 10 mg, By Mouth, 2 times a day, # 28 tablet, 0 Refills, Maintenance, 11/01/19 17:06:00 EDT, Tablet, [facility] #[id number], 167.6, cm, 03/20/19 8:28:00 EST, Height Start [...] needed, do not take with ibuprofen in afghan, # 30 tablet, 0 Refills, Maintenance, 02/13/19 14:04:28 EST, Tablet Start Date: 02/13/19 Status: Ordered ondansetron 4 mg oral tablet 1 tablet = 4 mg, By Mouth, Every 8 hours, PRN as needed for nausea/vomiting, # 12 tablet, 0 Refills, Maintenance, 11/01/19 14:06:00 EDT, Tablet, [facility]/pharmacy #[id number], 167.6, cm, 03/20/19 8:28:00 [...]
--- OUTSIDE RECORDS SUMMARY | 2022-06-30 08:45 | XMS_ITS | Continuity of Care Document ---
Author Name Unknown Organization [facility] Address [address] [place] [address]- Care Team Providers Care Asset Liability Analyst Name Role Phone Chandra ROSE, Michelle Cruz Primary Care Physici an Encounter [facility] [place] [facility] [id number] Date(s): 12/24/19 - 01/23/[address] [address]- [facility] Attending Physician: Chirag Moseley Admitting Physician: AdmtrChirag Referring Physician: Admtr, Chirag Allergies, Adverse Reactions, Alerts Substance Reaction Severity [...] 11/06/19 16:56:00 EDT, Route to Pharmacy Electronically, [facility] #[id number], 167.6, cm, 03/20/19 8:28:00... Start Date: 11/06/19 Status: Ordered cetirizine 10 mg oral tablet 1 tablet = 10 mg, By Mouth, Daily, # 30 tablet, 1 Refills, Maintenance, 05/23/18 14:31:47 EST, Tablet, Turkish instructions Start Date: 05/23/18 Status: Ordered famotidine 10 mg oral tablet 1 tablet = 10 mg, By Mouth, 2 times a day, # 28 tablet, 0 Refills, Maintenance, 11/01/19 17:06:00 EDT, Tablet, [facility] #[id number], 167.6, cm, 03/20/19 8:28:00 EST, Height Start Date: 11/01/19 Stop Date: 11/15/19 Status: Ordered hydrocortisone 2.5% topical cream 1 application, Topically, 2 times a day, Apply thin film to affected area on face until symptoms resolve. Do use for more than 2 weeks., # 30 Gm, 0 Refills, Maintenance, 05/23/18 14:33:45 EST, Cream,Turkish instructions, 1 application Topically 2 carina... Start Date: 05/23/18 Status: Ordered naproxen 500 mg oral tablet 1 tablet = 500 mg, By Mouth, 2 times a day, PRN Pain , Moderate, take regularly for 1-2 weeks then as needed, do not take with ibuprofen in estonian, # 30 tablet, 0 Refills, Maintenance, 02/13/19 14:04:28 EST, Tablet Start Date: 02/13/19 Status: Ordered ondansetron 4 mg oral tablet 1 tablet = 4 mg, By Mouth, Every 8 hours, PRN as needed for nausea/vomiting, # 12 tablet, 0 Refills, Maintenance, 11/01/19 14:06:00 EDT, Tablet, [facility]/pharmacy #[id number], 167.6, cm, 03/20/19 8:28:00 EST, [...]
--- OUTSIDE RECORDS SUMMARY | 2022-06-30 08:45 | XMS_ITS | Continuity of Care Document ---
Author Name Unknown Organization [facility] Address [address] [place] [address]- Care Team Providers Care Car Hiker Name Role Phone Chandra ROSE, Michelle Cruz Primary Care Physici an [facility] Date(s): 06/01/20 - 09/23/[address] [address] Attending Physician: Michelle Artis NP Admitting Physician: [...] 11/06/19 16:56:00 EDT, Route to Pharmacy Electronically, [facility] #[id number], 167.6, cm, 03/20/19 8:28:00... Start Date: 11/06/19 Status: Ordered cetirizine 10 mg oral tablet 1 tablet = 10 mg, By Mouth, Daily, # 30 tablet, 1 Refills, Maintenance, 05/23/18 14:31:47 EST, Tablet, Botswanan instructions Start Date: 05/23/18 Status: Ordered famotidine 10 mg oral tablet 1 tablet = 10 mg, By Mouth, 2 times a day, # 28 tablet, 0 Refills, Maintenance, 11/01/19 17:06:00 EDT, Tablet, [facility] #[id number], 167.6, cm, 03/20/19 8:28:00 EST, Height Start Date: 11/01/19 Stop Date: 11/15/19 Status: Ordered hydrocortisone 2.5% topical cream 1 application, Topically, 2 times a day, Apply thin film to affected area on face until symptoms resolve. Do use for more than 2 weeks., # 30 Gm, 0 Refills, Maintenance, 05/23/18 14:33:45 EST, Cream,Botswanan instructions, 1 application Topically 2 carina... Start Date: 05/23/18 Status: Ordered naproxen 500 mg oral tablet 1 tablet = 500 mg, By Mouth, 2 times a day, PRN Pain , Moderate, take regularly for 1-2 weeks then as needed, do not take with ibuprofen in grenadian, # 30 tablet, 0 Refills, Maintenance, 02/13/19 14:04:28 EST, Tablet Start Date: 02/13/19 Status: Ordered ondansetron 4 mg oral tablet 1 tablet = 4 mg, By Mouth, Every 8 hours, PRN as needed for nausea/vomiting, # 12 tablet, 0 Refills, Maintenance, 11/01/19 14:06:00 EDT, Tablet, [facility]/pharmacy #[id number], 167.6, cm, 03/20/19 8:28:00 EST, [...]
--- OUTSIDE RECORDS SUMMARY | 2022-06-30 08:45 | XMS_ITS | Continuity of Care Document ---
Author Name Unknown Organization [facility] Address [address] [place] [address]- Care Team Providers Care Engine Builder Name Role Phone Chandra ROSE, Michelle Cruz Primary Care Physici an Encounter [facility] Date(s): 01/17/19 - 04/03/[address] [address]- [facility] Attending Physician: Not on Staff, Attending MD [...] 1 Refills, Maintenance, 05/23/18 14:31:47 EST, Tablet, Syrian instructions Start Date: 05/23/18 Status: Ordered hydrocortisone 2.5% topical cream 1 application, Topically, 2 times a day, Apply thin film to affected area on face until symptoms resolve. Do use for more than 2 weeks., # 30 Gm, 0 Refills, Maintenance, 05/23/18 14:33:45 EST, Cream,Syrian instructions, 1 application Topically 2 carina... Start Date: 05/23/18 Status: Ordered naproxen 500 mg oral tablet 1 tablet = 500 mg, By Mouth, 2 times a day, PRN Pain , Moderate, take regularly for 1-2 weeks then as needed, do not take with ibuprofen in hebrew, # 30 tablet, 0 Refills, Maintenance, 02/13/19 [...]
--- NOTE | 2022-06-30 08:56 | ED.GENADULT ---
HPI - General Adult General Chief complaint: General Medical Stated complaint: chest pain, SOB Time Seen by Provider: 06/30/22 08:47 Source: patient Mode of arrival: ambulatory Limitations: no limitations History of Present Illness HPI narrative: 46-year-old female presents with a constellation complaints including myalgias, fever, cough, headache, nausea, sore throat. Symptoms started 3 days ago. Patient describes symptoms as severe. Is no clear relieving or exacerbating features. Her cough is associated with clear to yellow mucus production. Associated with chest pain. She describes the pain as sharp and tight. Worse with deep inspiration coughing. She denies any chest pain with exertion, orthopnea, PND, lower extremity edema. Patient also complains of a headache. It is located behind her eyes in the frontal sinus area. She describes the pain as moderate in nature. There is no photo phonophobia. The pain does not radiate. Is not in associated with neck pain or stiffness. Patient also complains of right-sided neck pain. She has some difficulty swallowing. She is able to control her secretions and denies any feeling of throat closing. Related Data Previous Rx's Medication Instructions Recorded naproxen 500 mg tablet 500 mg PO BID PRN pain #10 tabs 06/30/22 ondansetron 4 mg disintegrating 4 mg PO Q8H PRN nausea and 06/30/22 tablet vomiting #10 tabs Allergies Allergy/AdvReac Type Severity Reaction Status Date / Time No Known Allergies Allergy Unverified 12/19/19 19:08 [No Known Allergies*] [facility] Social History Social History Alcohol intake: current Alcohol intake frequency: holidays/special occasions only Smoked in Last 30 Days: No Use of substances other than those prescribed or required for medical reasons: No Advance Directives: No Advance Directives Information Provided: No Patient : No Physical Exam ED Vital Signs: Vital Signs - 24 hr 06/30/22 08:27 06/30/22 09:20 Temperature 97.1 F 97.9 F Pulse Rate 88 80 Respiratory Rate 18 20 Blood Pressure 131/87 134/85 Pulse Oximetry 96 96 Oxygen Delivery Method Room Air Room Air BMI result Body Mass Index 45.3 GEN: Well developed, no acute distress, alert, oriented HEENT: Normocephalic, atraumatic, normal external ears, nose appears normal, no oropharyngeal edema or exudates Eyes: Normal to appearance Neck: Supple, no lymphadenopathy Respiratory: Talks in complete sentences, no respiratory distress, clear to auscultation bilaterally Cardiovascular: Regular rate and rhythm, no murmurs rubs or gallops Abdomen: Soft, nontender, nondistended, no guarding, no rebound Back: No CVA tenderness Extremities: No clubbing cyanosis or edema Neurologic: No focal neurologic deficits, cranial nerves 2-12 intact, strength is 5/5 bilaterally, gait normal Skin: No rash Chest: Anterior chest wall tenderness to palpation Course Course Course Narrative: 46-year-old female presents with a constellation of symptoms including headache, fever, cough, chest pain, neck pain, subjective fever. Examination revealed anterior chest wall tenderness to palpation. Her oropharynx did not reveal any erythematous changes or tonsillar enlargement. I suspect viral illness. Doubt strep throat. Possibly COVID or influenza would be more likely diagnosis. Doubt RPA, SHOP COORDINATOR. Headache is gradual in onset, no neck pain or stiffness. Suspect sinus related or viral etiology. Doubt meningitis, subarachnoid hemorrhage, subdural hematoma or epidural hematoma. Patient received analgesics, chest x-ray, test for COVID and flu and re-evaluate patient. Reevaluation(s) Reevaluation #1: The workup is complete. She is negative for influenza and COVID. I still suspect a viral illness. Patient does feel better at this time. Will send prescription for ibuprofen and Zofran to her pharmacy. Time: 09:59 Medications Administered Discontinued Medications Generic Name Dose Route Start Last Admin Trade Name Roldanq PRN Reason Stop Dose Admin Ketorolac Tromethamine 30 mg 06/30/22 08:53 06/30/22 09:26 Ketorolac Tromethamine 30 Mg/Ml Vial IM 06/30/22 08:54 30 mg ONCE ONE Administration Ondansetron HCl 4 mg 06/30/22 08:53 06/30/22 09:25 Ondansetron Odt 4 Mg Tab.Rapdis TRANSLINGU 06/30/22 08:54 4 mg ONCE ONE Administration Medical Decision Making Medical Decision Making MDM Narrative: 46-year-old female presents with a constellation of symptoms including headache, fever, cough, chest pain, neck pain, subjective fever. Examination revealed anterior chest wall tenderness to palpation. Her oropharynx did not reveal any erythematous changes or tonsillar enlargement. I suspect viral illness. Doubt strep throat. Possibly COVID or influenza would be more likely diagnosis. Doubt RPA, SHOP COORDINATOR. Headache is gradual in onset, no neck pain or stiffness. Suspect sinus related or viral etiology. Doubt meningitis, subarachnoid hemorrhage, subdural hematoma or epidural hematoma. Patient received analgesics, chest x-ray, test for COVID and flu and re-evaluate patient. Differential Diagnosis Differential Diagnoses: The differential diagnosis associated with the presentation includes (Viral syndrome, COVID, pneumonia, influenza, migraine, tension headache, sinus headache) Admission/Observation Consideration of admission/observation: Escalation of care including admission/observation considered Lab Data MDM Lab Attestation statement: I reviewed the patient's lab results. Labs: Lab Results 06/30/22 06/30/22 Range/Units 08:58 08:58 COVID-19 (CHITRA) Negative (Negative) COVID-19 Clin Com See Note Influenza Type A (MARILEE) Negative (Negative) Influenza Type B (MARILEE) Negative (Negative) Influenza A & B Note See Note Independent Interpretation I performed an independent interpretation of an: EKG (Normal sinus rhythm heart rate 90 cover rule intervals, no acute ST elevations or depressions) and Plain X-Ray ( XR/XR chest 2V IMPRESSION: No acute cardiopulmonary process. Dictated By:Evelin Mendes MDSigned By:<Electronically signed by Evelin Mendes MD in [place]>06/30/22 0986) Prescription Management I considered prescription management with: Pain Medication and Antibiotic Discharge Plan Discharge Clinical Impression: Acute viral syndrome Patient Disposition: Home, Self-Care Instructions: Viral Syndrome (ED) Prescriptions: New naproxen 500 mg tablet 500 mg PO BID PRN (Reason: pain) Qty: 10 0RF ondansetron 4 mg tablet,disintegrating 4 mg PO Q8H PRN (Reason: nausea and vomiting) Qty: 10 0RF Referrals: Physician,Unknown J [Primary Care Provider] -
[2022-06-30 09:18] LABS: COVID-19 Test Negative (Negative); IDNOW Serial# 08D9AD1C
[2022-06-30 09:19] LABS: IDNOW Serial# BCCEAD1C; Influenza A Negative (Negative); Influenza B2 Negative (Negative)
[2022-06-30 09:20] VITALS: BP 134/85; PULSE 80; RESP 20; TEMP 36.6; O2SAT 96
[2022-06-30] MEDS: Ondansetron ODT 4 MG TAB.RAPDIS TRANSLINGU (09:25)
[2022-06-30] MEDS: Ketorolac Tromethamine 30 MG/ML VIAL IM (09:26)
--- NOTE | 2022-06-30 09:29 | PC.NURSE ---
pt vitals stable, alert/oriented. lung sounds clear. medicated per order.
== END 2022-06-30 10:10 | disposition home or self-care (01) ==
PROVIDERS: Emergency Provider Emergency Medicine
DX: B34.9 Viral infection, unspecified (principal); R05.9 Cough, unspecified; J02.9 Acute pharyngitis, unspecified; R06.02 Shortness of breath; Z20.822 Contact with and (suspected) exposure to COVID-19
CPT/HCPCS: 71046; 87502; 87635; 93005; 96372; 99284; J1885

== ENCOUNTER 2023-04-10 11:15 | Emergency (ER) | payer OTHER, SELFPAY ==
--- NOTE | 2023-04-10 | ECG_ITS ---
Test Reason : chest pain Blood Pressure : / mmHG Vent. Rate : 089 BPM Atrial Rate : 089 BPM P-R Int : 150 ms QRS Dur : 070 ms QT Int : 378 ms P-R-T Axes : 021 006 001 degrees QTc Int : 459 ms Normal sinus rhythm Cannot rule out Anterior infarct (cited on or before 30-JUN-2022) Abnormal ECG When compared with ECG of 30-JUN-2022 08:22, Nonspecific T wave abnormality, worse in Anterior leads Referred By: Generic ED Physician Electronically Signed By:DEX BAUTISTA MD
[2023-04-10 11:29] VITALS: BP 144/94; PULSE 89; RESP 18; TEMP 36.8; O2SAT 95; BMI 47.5
[2023-04-10 11:32] LABS: MANUAL DIFF FLAG NO
--- NOTE | 2023-04-10 11:32 | ED_ITS ---
HPI - Chest Pain General Chief Complaint: Chest Pain Stated Complaint: Chest pain/L arm pain/Nausea Source: patient Mode of arrival: ambulatory Limitations: no limitations History of Present Illness HPI narrative: Patient is a 47 year old assigned female at with a history of HTN presenting to the emergency department today with chest pain. Patient states that she has been having substernal chest pain for a day. Patient denies any dizziness, lightheadedness, abdominal pain, nausea, vomiting, fever, chills, blurry vision, double vision, loss of vision, difficulty breathing, shortness of breath, back pain, night sweats, pain with urination, increased urinary frequency, increased urinary urgency, blood in her urine or stool, syncope or a near syncopal episode, recent trauma or falls, bowel incontinence, bladder incontinence, bowel retention, bladder retention, or any other complaints at this time. MD complaint: chest pain Onset (ago): day(s) (1) Prior episodes: Yes Pain location: substernal Severity: mild Related Data Previous Rx's Medication Instructions Recorded naproxen 500 mg tablet 500 mg PO BID PRN pain #10 tabs 06/30/22 ondansetron 4 mg disintegrating 4 mg PO Q8H PRN nausea and 06/30/22 tablet vomiting #10 tabs Allergies Allergy/AdvReac Type Severity Reaction Status Date / Time No Known Allergies Allergy Verified 04/10/23 11:32 [No Known Allergies*] Review of Systems 2 Constitutional: Constitutional: Reports no additional constitutional complaints, Denies chills, Denies fever(s) and Denies night sweats Eyes: Eyes: Reports no additional eye complaints, Denies blurry vision, Denies change in vision, Denies diplopia, Denies eye discharge, Denies loss of vision and Denies eye pain ENT: Denies dizziness Cardiovascular: Cardiovascular: Reports no additional cardiovascular complaints, Reports chest pain, Denies lightheadedness, Denies Loss of Consciousness and Denies dyspnea Respiratory: Respiratory: Reports no additional respiratory complaints and Denies dyspnea Gastrointestinal: Gastrointestinal: Reports no additional gastrointestinal complaints, Denies abdominal pain, Denies melena, Denies hematochezia, Denies change in bowel habits and Denies change in stool character Genitourinary: Genitourinary: Denies hematuria, Denies urinary frequency, Denies dysuria, Denies urinary incontinence, Denies urinary hesitancy and Denies urinary urgency Musculoskeletal: Musculoskeletal: Reports no additional musculoskeletal complaints, Denies numbness and Denies tingling Neurologic: Denies dizziness, Denies loss of vision, Denies numbness and Denies tingling Psychiatric: Psychiatric: Reports no additional psychiatric complaints Endocrine: Endocrine: Reports no additional endocrine complaints Hematologic/Lymphatic: Hematologic/Lymphatic: Reports no additional hematologic/lymphatic complaints Allergic/Immunologic: Allergic/Immunologic: Reports no additional allergic/immunologic complaints PMFSH Past Medical History Attestation statement: The following information was validated with the patient. Source: old records reviewed and nursing notes reviewed Onset Date is defined in the Problem List Problems that require an onset date and time if occurred within 24 hrs of arrival to the ED Aortic Dissection and Rupture; Neurologic impairment; Cardiopulmonary Arrest; Endotracheal Intubation; Insertion or Replacement of Mechanical Circulatory Assist Device Social History Social History Alcohol intake: current Alcohol intake frequency: holidays/special occasions only Advance Directives: No Advance Directives Information Provided: No Physical Exam 2 Vital Signs: Vital Signs: Last Vital Signs Temp 98.2 F 04/10/23 11:29 Pulse 89 04/10/23 11:29 Resp 18 04/10/23 11:29 BP 144/94 H 04/10/23 11:29 Pulse Ox 95 04/10/23 11:29 O2 Del Method Room Air 04/10/23 11:29 BMI result Body Mass Index 47.5 Const: General: cooperative, no acute distress, alert and awake Nutritional Appearance: well nourished Orientation/consciousness: patient oriented x3 Limitations: no limitations HEENT: Head: Yes normal to inspection and Yes atraumatic Ears: hearing grossly normal bilaterally and external ears normal General nose exam: Normal external nose present, no nasal discharge noted and no epistaxis Face and sinus: Yes normal facial exam, No abrasion and No laceration Mouth: Normal oral and palatal mucosa present, no drooling and no muffled voice Eyes: General: appearance normal, both eyes and all related structures P eriorbital: periorbital findings normal Eyelids: Yes eyelids normal C onjunctivae: conjunctivae normal Pupils: Equal, round and reactive pupils present EOM: EOMs intact bilaterally Neck: Neck: Yes normal visual inspection, Yes full ROM and Yes no lymphadenopathy Chest: Chest palpation & inspection: normal inspection of the chest Resp: Effort & Inspection: normal respiratory effort and able to speak in complete sentences GI: Inspection: Yes normal to inspection Neuro: General: patient oriented x3 and moves all extremities Cranial nerves: Yes Equal, round and reactive pupils present Cognition (Neuro): n ormal cognition Motor exam (neuro): 5/5 motor strength present throughout Sensory Exam: Normal double simultaneous stimulation for sensation C oordination: [id number] test normal Extrem: General: Yes normal to inspection, Yes full ROM and Yes capillary refill normal Psych: Appearance: grossly normal Mental Status: mental status grossly normal Affect: normal affect Attitude: cooperative Thought process: N ormal thought process present Thought content: Normal thought content present Insight: Good insight present (Psych) Course Course Course Narrative: RME performed by Gabriela Nix PA-C. Patient is a 47 year old assigned female at presenting to the emergency department with chest pain. Detailed physical exam and review of systems are deferred to the household refrigeration mechanic. Labs, imaging, and swabs ordered. Patient placed back in the waiting room pending room availability and results. Medical Decision Making Medical Decision Making [facility] Narrative: Patient is a 47 year old assigned female at with a history of HTN presenting to the emergency department today with chest pain. Patient's limited physical exam performed in triage was unremarkable. Patient's blood work was unremarkable. Patient's EKG was unremarkable. Patient's chest x-ray showed no acute process. Patient left the department without completing treatment. Patient left the department before myself or any of the other emergency department clinicians could explain or review physical exam findings, test results, need or lack there of for additional testing, treatment options, or a treatment plan. Differential Diagnosis Differential Diagnoses: The differential diagnosis associated with the presentation includes Chest pain STEMI NSTEMI RSV COVID-19 Influenza Admission/Observation Consideration of admission/observation: Escalation of care including admission/observation considered Patient would have been admitted to the hospital had her work up had any findings where hospital admission was appropriate, her clinical presentation warranted hospital admission, and she hadn't left the department. Lab Data [facility] Lab Attestation statement: I reviewed the patient's lab results. My interpretation of these studies and their corresponding values is that they are grossly normal. 04/10/23 11:27 04/10/23 11:27 Labs: Lab Results 04/10/23 04/10/23 Range/Units 11:27 15:20 WBC 8.6 (4.8-10.8) X10*3/uL RBC 4.33 (4.20-5.50) X10*6/uL Hgb 13.2 (12.0-16.0) g/dl Hct 38.7 (37.0-47.0) % MCV 89.4 (80.0-98.0) fL MCH 30.5 (27.0-33.0) pg MCHC 34.1 (31.0-35.0) g/dl RDW 12.5 (11.0-16.0) % Plt Count 238 (160-400) X10*3/uL MPV 11.2 (9.4-12.3) fL Immature Gran % (Auto) 0.2 (0.0-0.4) % Neut % (Auto) 66.7 (45-73) % Lymph % (Auto) 23.1 (20-40) % Wayne % (Auto) 7.9 (2-11) % Eos % (Auto) 1.4 (0-4) % Baso % (Auto) 0.7 (0-2) % Lymph # (Auto) 2.0 (1.2-4.9) X10*3/uL Wayne # (Auto) 0.7 (0.1-1.2) X10*3/uL Eos # (Auto) 0.1 (0.0-0.4) X10*3/uL Baso # (Auto) 0.1 (0.0-0.2) X10*3/uL Abs Immat Gran (auto) 0.02 (0.00-0.03) X10*3/uL Absolute Neuts (auto) 5.7 (2.0-8.3) x10*3/uL Absolute Nucleated RBC 0.000 (0.0-0.012) X10*3/uL Nucleated RBC % (auto) 0.0 (0.0-0.2) /100WBC Sodium 137 (135-145) mmol/L Potassium 4.0 (3.3-5.1) mmol/L Chloride 105 (96-108) mmol/L Carbon Dioxide 22 (22-29) mmol/L Anion Gap 14 (12-20) BUN 13 (9-16) mg/dL Creatinine 0.73 (0.5-1.4) mg/dL Estim Creat Clear Calc 136.7 Estimated GFR > 60 Random Glucose 93 (60-115) mg/dL Calcium 9.3 (8.4-10.2) mg/dL Magnesium 2.0 (1.6-2.6) mg/dL Total Bilirubin 0.5 (0.0-1.0) mg/dL Direct Bilirubin 0.1 (0.0-0.5) mg/dL AST 16 (5-31) U/L ALT 19 (0-31) U/L Alkaline Phosphatase 81 (39-117) U/L Troponin I High Sens < 2.7 (<3.5-17.0) ng/L Total Protein 7.7 (6.5-8.0) g/dL Albumin 4.2 (3.5-5.0) g/dL Influenza Type A (PCR) NEGATIVE (Negative) Influenza Type B (PCR) NEGATIVE (Negative) RSV RNA Qual (PCR) NEGATIVE (Negative) SARS-CoV-2 RNA (RT-PCR) NEGATIVE (Negative) Independent Interpretation I performed an independent interpretation of an: EKG and Plain X-Ray Interpretation: My interpretation is in agreement with the radiologist's impression of this imaging study. - EXAMINATION: XR CHEST CLINICAL INFORMATION: Chest pain. COMPARISON: Chest radiograph 06/30/2022. TECHNIQUE: PA view of the chest was obtained. FINDINGS: No significant abnormality is noted involving the heart, lungs, mediastinum, bony thorax or soft tissues. XR/XR chest 1V IMPRESSION: Unremarkable examination. Dictated By: Yudi Aguilera Signed By: Electronically signed by Yudi Aguilera 04/10/23 1211 - Vent. Rate: 089 BPM Atrial Rate: 089 BPM P-R Int: 150 ms QRS Dur: 070 ms QT Int: 378 ms P-R-T Axes: 021 006 001 degrees QTc Int: 459 ms Normal sinus rhythm Cannot rule out Anterior infarct (cited on or before 30-JUN-2022) Abnormal ECG When compared with ECG of 30-JUN-2022 08:22, Nonspecific T wave abnormality, worse in Anterior leads Electronically Signed By:TANNER BAUTISTA MD Dictated By: Tanner Bautista MD Signed By: Electronically signed by Tanner Bautista MD 04/11/23 1410 Radiology Impression Discussion of test interpretation with radiology: I have reviewed the radiologist's reading. Discharge Plan Discharge Clinical Impression: Chest pain Patient Disposition: Left W/O Completing Treatment Prescriptions: No Action naproxen 500 mg tablet 500 mg PO BID PRN (Reason: pain) Qty: 10 0RF ondansetron 4 mg tablet,disintegrating 4 mg PO Q8H PRN (Reason: nausea and vomiting) Qty: 10 0RF Discharge Date/Time: 04/10/23 18:01
[2023-04-10 11:35] LABS: Basophils Absolute Auto 0.1 X10*3/uL (0.0-0.2); Basophils Percent Auto 0.7 % (0-2); Eosinophils Absolute Auto 0.1 X10*3/uL (0.0-0.4); Eosinophils Percent Auto 1.4 % (0-4); Hematocrit 38.7 % (37.0-47.0); Hemoglobin 13.2 g/dl (12.0-16.0); Imm Gran Abs Auto 0.02 X10*3/uL (0.00-0.03); Imm Gran Pct Auto 0.2 % (0.0-0.4); Lymphocytes Percent Auto 23.1 % (20-40); Mean Corpuscular HGB Conc 34.1 g/dl (31.0-35.0); Mean Corpuscular Hemoglobin 30.5 pg (27.0-33.0); Mean Corpuscular Volume 89.4 fL (80.0-98.0); Mean Platelet Volume 11.2 fL (9.4-12.3); Monocytes Absolute Auto 0.7 X10*3/uL (0.1-1.2); Monocytes Percent Auto 7.9 % (2-11); Neutrophils Absolute Auto 5.7 x10*3/uL (2.0-8.3); Neutrophils Percent Auto 66.7 % (45-73); Platelet Count 238 X10*3/uL (160-400); Red Blood Count 4.33 X10*6/uL (4.20-5.50); Red Cell Distribution Width 12.5 % (11.0-16.0); White Blood Count 8.6 X10*3/uL (4.8-10.8)
[2023-04-10 11:57] LABS: Troponin-I High Sensitivity < 2.7 ng/L (<3.5-17.0)
[2023-04-10 12:28] LABS: Alanine Aminotransferase 19 U/L (0-31); Albumin Level 4.2 g/dL (3.5-5.0); Alkaline Phosphatase 81 U/L (39-117); Anion Gap 14 (12-20); Aspartate Amino Transferase 16 U/L (5-31); Bilirubin Direct 0.1 mg/dL (0.0-0.5); Bilirubin Total 0.5 mg/dL (0.0-1.0); Blood Urea Nitrogen 13 mg/dL (9-16); Calcium 9.3 mg/dL (8.4-10.2); Carbon Dioxide 22 mmol/L (22-29); Chloride 105 mmol/L (96-108); Creatinine Clr Calc Pharmacy 136.7; Estimated Glomerular Filt Rate > 60; Glucose Random 93 mg/dL (60-115); Sodium 137 mmol/L (135-145); Total Protein 7.7 g/dL (6.5-8.0)
[2023-04-10 16:50] LABS: Influenza A PCR NEGATIVE (Negative); Influenza B PCR NEGATIVE (Negative); Resp Syncy Virus RNA Qual PCR NEGATIVE (Negative); SARS COV2 PCR INHOUSE NEGATIVE (Negative)
== END 2023-04-10 18:01 | disposition left against medical advice (07) ==
PROVIDERS: Physician Assistant Medical; Emergency Provider Emergency Medicine
DX: R07.89 Other chest pain (principal); M79.602 Pain in left arm; R11.2 Nausea with vomiting, unspecified; Z20.822 Contact with and (suspected) exposure to COVID-19; Z20.828 Contact with and (suspected) exposure to other viral communicable diseases; Z79.899 Other long term (current) drug therapy
CPT/HCPCS: 0241U; 36415; 71045; 80048; 80076; 83735; 84484; 85025; 93005; 99283

== ENCOUNTER → 2023-04-10 11:22 | Outpatient (BNV) | payer OTHER, SELFPAY | PROVIDERS: Emergency Provider Emergency Medicine; Visit Provider Internal Medicine Cardiovascular Disease | DX: R94.31 Abnormal electrocardiogram [ECG] [EKG] (principal); R07.9 Chest pain, unspecified | CPT/HCPCS: 93010 ==